=== PATIENT | female | born 1960 | race African-American/Black ===

== ENCOUNTER 2016-12-21 03:33 | Emergency (ER) | payer OTHER ==
[2016-12-21 04:26] LABS: #Basophils 0.1 thou/uL (0.0-0.2); #Eosinphils 0.2 thou/uL (0.0-0.7); #Lymphocytes 2.3 thou/uL (1.20-3.40); #Monocytes 0.5 thou/uL (0.11-0.59); #Neutrophils 3.2 thou/uL (1.40-6.50); %Basophils 1.4 % (0.0-1.0); %Eosinophils 2.5 % (0.0-10.0); %Lymphocytes 36.8 % (21.0-51.0); %Monocytes 7.9 % (0.0-10.0); Hematocrit 39.3 % (36.0-47.0); Mean Platelet Volume 7.3 fL (7.4-10.4); Red Blood Cell (RBC) Count 4.04 mill/uL (4.20-5.40); White Blood Cell (WBC) Count 6.3 thou/uL (4.8-10.8)
[2016-12-21 04:49] LABS: ALT (SGPT) 9 U/L (8-55); AST (SGOT) 13 U/L (5-34); Alkaline Phosphatase 132 U/L (40-150); Anion Gap 15 mmol/L (10-20); BUN (Urea Nitrogen) 12 mg/dL (9.8-20.1); Bilirubin, Total 0.2 mg/dL (0.2-1.2); CK (CPK) 96 U/L (29-168); Calc. Creatinine Clearance 0 mL/min (70-130); Calcium 8.5 mg/dL (7.8-10.44); Carbon Dioxide 21 mmol/L (22-29); Chloride 106 mmol/L (98-107); Estimated GFR-MDRD Greater than 90; Globulin 3.2 g/dL (2.4-3.5); Protein, Total 6.5 g/dL (6.0-8.3)
[2016-12-21 04:53] LABS: Troponin I Less than 0.010 ng/mL (< 0.028)
[2016-12-21] MEDS ORDERED: Ketorolac Tromethamine 30 MG/ML VIAL ONE (04:53)
[2016-12-21] MEDS ORDERED: Ibuprofen 200 MG TAB ONE (04:58)
--- NOTE | 2016-12-21 07:51 | RAD ---
SINGLE VIEW OF CHEST: Date: 12/21/16 COMPARISON: 10/28/16. HISTORY: Shortness of breath and chest pain that began 1 hour prior to arrival. FINDINGS/IMPRESSION: Single view of the chest shows a normal sized cardiomediastinal silhouette. There is no evidence of consolidation, mass, or pleural effusion. The bones are unremarkable. Shrapnel is seen in the left a xillary region. IMPRESSION: No evidence of acute cardiopulmonary disease. POS: [facility]
--- NOTE | 2017-02-03 16:47 | EKG ---
Test Reason : CHEST PAIN Blood Pressure : / mmHG Vent. Rate : 075 BPM Atrial Rate : 075 BPM P-R Int : 134 ms QRS Dur : 068 ms QT Int : 386 ms P-R-T Axes : 083 063 061 degrees QTc Int : 431 ms Normal sinus rhythm with sinus arrhythmia Normal ECG Confirmed by AMENA BROCK, RENÉE ([id number]), photograph editor GIORGI GLASS ([id number]) on 02/03/2017 4:46:43 PM Referred By: GUNNER BECKWITH Confirmed By:RENÉE BECKWITH MD
== END 2016-12-21 06:13 | disposition home or self-care (01) ==
LOC: ERS 03:33
DX: M94.0 Chondrocostal junction syndrome [Tietze] (principal); K21.9 Gastro-esophageal reflux disease without esophagitis; I10 Essential (primary) hypertension; F20.9 Schizophrenia, unspecified; F32.9 Major depressive disorder, single episode, unspecified; F17.210 Nicotine dependence, cigarettes, uncomplicated; Z79.899 Other long term (current) drug therapy
CPT/HCPCS: 71010; 80053; 82553; 84484; 85025; 93005; J1885

== ENCOUNTER 2016-12-30 15:28 | Emergency (ER) | payer OTHER ==
[~2016-12-30 15:28] MED LIST: ISOVUE-370 76%-LOCM 1 ML ONE
[2016-12-30 16:44] LABS: #Basophils 0.1 thou/uL (0.0-0.2); #Eosinphils 0.1 thou/uL (0.0-0.7); #Lymphocytes 2.1 thou/uL (1.20-3.40); #Monocytes 0.4 thou/uL (0.11-0.59); #Neutrophils 2.9 thou/uL (1.40-6.50); %Basophils 1.3 % (0.0-1.0); %Eosinophils 1.7 % (0.0-10.0); %Lymphocytes 37.2 % (21.0-51.0); %Monocytes 7.1 % (0.0-10.0); Hematocrit 43.1 % (36.0-47.0); Mean Platelet Volume 6.6 fL (7.4-10.4); Red Blood Cell (RBC) Count 4.48 mill/uL (4.20-5.40); White Blood Cell (WBC) Count 5.5 thou/uL (4.8-10.8)
[2016-12-30] MEDS ORDERED: Metoclopramide HCl 10 MG/2 ML VIAL ONE (16:56)
[2016-12-30] MEDS ORDERED: Morphine 4 MG/ML VIAL ONE (16:56)
[2016-12-30 16:58] LABS: Bilirubin Negative (Negative); Blood, Urine Negative (Negative); Glucose, Urine (Dipstick) Negative (Negative); Ketone, Urine Negative (Negative); Nitrite Negative (Negative); Protein, Urine (Dipstick) Negative (Neg-Trace); Urobilinogen 0.2 mg/dL (0.2-1.0)
[2016-12-30 16:59] LABS: ALT (SGPT) 9 U/L (8-55); AST (SGOT) 17 U/L (5-34); Alkaline Phosphatase 164 U/L (40-150); Anion Gap 13 mmol/L (10-20); BUN (Urea Nitrogen) 11 mg/dL (9.8-20.1); Bilirubin, Total Less than 0.2 mg/dL (0.2-1.2); CK (CPK) 99 U/L (29-168); Calc. Creatinine Clearance 0 mL/min (70-130); Calcium 9.3 mg/dL (7.8-10.44); Carbon Dioxide 28 mmol/L (22-29); Chloride 104 mmol/L (98-107); Estimated GFR-MDRD Greater than 90; Globulin 3.7 g/dL (2.4-3.5); Lipase 16 U/L (8-78); Protein, Total 7.9 g/dL (6.0-8.3)
[2016-12-30 17:01] LABS: Troponin I Less than 0.010 ng/mL (< 0.028)
--- NOTE | 2016-12-30 17:32 | CT ---
CT ABDOMEN AND PELVIS WITH CONTRAST 12/30/16 HISTORY: Nausea and vomiting. COMPARISON: None. FINDINGS: There is some atelectatic changes versus scarring in the lower lobes with some traction bronchiectasi s. Large sliding hiatal hernia. Cholecystectomy changes with mild reservoir effect at the extrahepati c biliary system. Appendix is visualized and is normal. No radiopaque foreign object along the left sacrospinal ligament. Moderate degenerative disease of the pubic symphysis with some mild offset, likely chronic in nature with the right pubic body just caudad to the left pubic body. No dilated loops of large or small bowel. No adenopathy. There is contrast within the renal collectin g systems and the urinary bladder. Prior hysterectomy. IMPRESSION: 1. No acute intra-abdominal abnormality. 2. Moderate sized sliding hiatal hernia. 3. Scarring in the lung bases with traction bronchiectasis likely post infectious in nature. POS: [facility]
== END 2016-12-30 20:23 | disposition home or self-care (01) ==
LOC: ERS 15:28
DX: R11.2 Nausea with vomiting, unspecified (principal); R10.10 Upper abdominal pain, unspecified; M19.90 Unspecified osteoarthritis, unspecified site; K21.9 Gastro-esophageal reflux disease without esophagitis; I10 Essential (primary) hypertension; I48.91 Unspecified atrial fibrillation; G43.909 Migraine, unspecified, not intractable, without status migrainosus; F32.9 Major depressive disorder, single episode, unspecified; F20.9 Schizophrenia, unspecified; F17.210 Nicotine dependence, cigarettes, uncomplicated; Z79.899 Other long term (current) drug therapy
CPT/HCPCS: 74177; 80053; 81003; 82553; 83690; 84484; 85025; 93005; 96360; 96361; 96374; 96375; 99406; J2270; J2765

== ENCOUNTER 2017-02-19 03:53 | Emergency (ER) | payer OTHER ==
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
== END 2017-02-19 06:05 | disposition home or self-care (01) ==
LOC: ERS 03:53
DX: J18.9 Pneumonia, unspecified organism (principal); M19.90 Unspecified osteoarthritis, unspecified site; K21.9 Gastro-esophageal reflux disease without esophagitis; I10 Essential (primary) hypertension; I48.91 Unspecified atrial fibrillation; G43.909 Migraine, unspecified, not intractable, without status migrainosus; F20.9 Schizophrenia, unspecified; F32.9 Major depressive disorder, single episode, unspecified; F17.210 Nicotine dependence, cigarettes, uncomplicated; Z71.6 Tobacco abuse counseling; Z79.899 Other long term (current) drug therapy
CPT/HCPCS: 71046; 93005; 99406

== ENCOUNTER 2017-03-28 06:21 | Emergency (ER) | payer OTHER | END 2017-03-28 07:38 | disposition home or self-care (01) | LOC: ERS 06:21 | DX: J11.1 Influenza due to unidentified influenza virus with other respiratory manifestations (principal); M19.90 Unspecified osteoarthritis, unspecified site; K21.9 Gastro-esophageal reflux disease without esophagitis; I48.91 Unspecified atrial fibrillation; F41.9 Anxiety disorder, unspecified; F25.9 Schizoaffective disorder, unspecified; F32.9 Major depressive disorder, single episode, unspecified; F17.210 Nicotine dependence, cigarettes, uncomplicated; I10 Essential (primary) hypertension; G43.909 Migraine, unspecified, not intractable, without status migrainosus | CPT/HCPCS: 99283 ==

== ENCOUNTER 2017-04-13 04:01 | Inpatient (IN) | payer OTHER ==
[2017-04-13 05:46] LABS: ALT (SGPT) 13 U/L (8-55); AST (SGOT) 19 U/L (5-34); Acetaminophen Less than 6.0 mcg/mL (10.0-30.0); Albumin 4.1 g/dL (3.5-5.0); Alcohol Less than 10 mg/dL (Less than 10); Alkaline Phosphatase 126 U/L (40-150); Anion Gap 17 mmol/L (10-20); BUN (Urea Nitrogen) 21 mg/dL (9.8-20.1); Bilirubin, Total 0.6 mg/dL (0.2-1.2); Calc. Creatinine Clearance 0 mL/min (70-130); Calcium 9.3 mg/dL (7.8-10.44); Carbon Dioxide 23 mmol/L (22-29); Chloride 106 mmol/L (98-107); Estimated GFR-MDRD 80; Globulin 3.5 g/dL (2.4-3.5); Glucose 87 mg/dL (70-105); Potassium 3.9 mmol/L (3.5-5.1); Protein, Total 7.6 g/dL (6.0-8.3); Salicylate Less than 8.0 mg/dL (15.0-30.0); Sodium 142 mmol/L (136-145)
[2017-04-13] MEDS ORDERED: Acetaminophen 500 MG TAB ONE (05:52)
[2017-04-13 05:53] LABS: Band 22 % (5-11); Hemoglobin 14.1 g/dL (12.0-16.0); Lymphocytes 8 % (21-51); MDiff Complete? YES; Mean Corpuscular HGB CONC 33.7 g/dL (32.0-36.0); Mean Corpuscular Hemoglobin 31.3 pg (27.0-31.0); Mean Corpuscular Volume 93.1 fl (81.0-99.0); Mean Platelet Volume 7.6 fL (7.4-10.4); Neutrophil 70 % (42-75); Platelet Count 280 thou/uL (130-400); RBC Distribution Width 11.4 % (11.5-14.5); Red Blood Cell (RBC) Count 4.51 mill/uL (4.20-5.40); White Blood Cell (WBC) Count 15.8 thou/uL (4.8-10.8)
[2017-04-13 06:30] LABS: Bilirubin Negative (Negative); Blood, Urine Negative (Negative); Clarity CLEAR (Clear); Glucose, Urine (Dipstick) Negative (Negative); Leukocyte Negative (Negative); Nitrite Negative (Negative); Protein, Urine (Dipstick) 30 mg/dL (Neg-Trace); Specific Gravity, Urine 1.026 (1.002-1.036); Urobilinogen 0.2 mg/dL (0.2-1.0)
[2017-04-13 06:33] LABS: Bacteria/HPF None Seen HPF (None Seen); Pathc Cast-AUWi Flag 1.76 (0-2.49); RBC/HPF 0-3 HPF (0-3); Squamous Epithelial 0-3 HPF (0-3)
[2017-04-13 06:41] LABS: Medtox Reader # READER 1
[2017-04-13 06:42] LABS: Amphetamine Not Detected (NotDetected); Barbiturates Screen Detected (NotDetected); Benzodiazepine Screen Not Detected (NotDetected); Cocaine Metabolite Screen Detected (NotDetected); Medtox Control Line Valid? VALID (VALID); Methadone Not Detected (NotDetected); Methamphetamine Not Detected (NotDetected); Opiate Screen Not Detected (NotDetected); Oxycodone Screen Not Detected (NotDetected); Phencyclidine (PCP) Not Detected (NotDetected); THC/Cannabinoid Screen Not Detected (NotDetected); Tricyclic Screen Not Detected (NotDetected)
[2017-04-13] MEDS ORDERED: Azithromycin 500 MG VIAL ONE (06:58)
[2017-04-13 07:03] LABS: Hyaline Casts/LPF 0-3 HYALINE CAST LPF (0-3 Hyaline); Renal Epithelial None Seen HPF (0-3); WBC/HPF 0-3 HPF (0-3)
[2017-04-13 07:45] LABS: CKMB 1.9 ng/mL (0-6.6); Troponin I 0.013 ng/mL (< 0.028)
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
[2017-04-13] MEDS ORDERED: Ondansetron HCl/PF 4 MG/2 ML Vial IVP PRN ×2 (09:02→21:21)
[2017-04-13] MEDS ORDERED: Ondansetron ODT 4 MG TAB PO PRN ×2 (09:02→21:21)
[2017-04-13] MEDS ORDERED: Acetaminophen 325 MG TAB PO PRN (09:02)
[2017-04-13 09:47] VITALS: BMI 27.0
[2017-04-13] MEDS ORDERED: Ondansetron HCl/PF 4 MG/2 ML Vial SLOW IVP PRN (19:33)
[2017-04-13] MEDS: traMADol HCl 50 MG TAB PO PRN (19:48)
[2017-04-13] MEDS: ALPRAZolam 1 MG TAB PO SCH (20:43)
[2017-04-13] MEDS: Pregabalin 50 MG CAP PO SCH (20:43)
[2017-04-13] MEDS: traZODone HCl 50 MG TAB PO SCH (20:43)
[2017-04-14 05:52] LABS: #Eosinphils 0.1 thou/uL (0.0-0.7); #Lymphocytes 2.1 thou/uL (1.20-3.40); #Monocytes 0.6 thou/uL (0.11-0.59); #Neutrophils 10.2 thou/uL (1.40-6.50); %Eosinophils 0.7 % (0.0-10.0); %Monocytes 4.8 % (0.0-10.0); %Neutrophils 78.5 % (42.0-75.0); Hemoglobin 12.6 g/dL (12.0-16.0); Mean Corpuscular HGB CONC 32.3 g/dL (32.0-36.0); Mean Corpuscular Hemoglobin 30.8 pg (27.0-31.0); Mean Corpuscular Volume 95.4 fl (81.0-99.0); Mean Platelet Volume 7.5 fL (7.4-10.4); Platelet Count 244 thou/uL (130-400); RBC Distribution Width 11.4 % (11.5-14.5); Red Blood Cell (RBC) Count 4.09 mill/uL (4.20-5.40)
[2017-04-14 06:19] LABS: Anion Gap 13 mmol/L (10-20); BUN (Urea Nitrogen) 13 mg/dL (9.8-20.1); Calc. Creatinine Clearance 104 mL/min (70-130); Calcium 8.8 mg/dL (7.8-10.44); Carbon Dioxide 23 mmol/L (22-29); Chloride 109 mmol/L (98-107); Estimated GFR-MDRD Greater than 90; Glucose 88 mg/dL (70-105); Sodium 141 mmol/L (136-145)
--- NOTE | 2017-04-14 06:55 | HP ---
CHIEF COMPLAINT: Headache and cocaine overdose. HISTORY OF PRESENT ILLNESS: History is that of 57-year-old female patient who took cocaine and chantal garcia overdosed on it, presented to the ER complaining of left-sided pain and frontal headache, which s tarted after smoking crack. The patient incidentally was noted on clinical evaluation with chest x-r ay of what appears to be right lower lobe pneumonia. The patient does have sick contact and claimed to also be coughing. As a result of this, the patient is now being admitted to be treated for the pn eumonitis. PAST MEDICAL HISTORY: Significant for seizure disorder, reflux disease, hypertension, atrial fibrill ation, migraine headache. MEDICATIONS: Reviewed and as documented on [email or web address]. ALLERGIES: PENICILLINS and KETOROLAC. FAMILY HISTORY: Not significantly related to presenting illness. SOCIAL HISTORY: The patient used to smoke cigarettes. In addition, the patient is now using crack a fter claiming to be clean for some time due to depression . PHYSICAL EXAMINATION: GENERAL: The patient was found not to be in any respiratory distress, but complaining of headache no concetta with the following vital signs. VITAL SIGNS: Afebrile with temperature 97.9, pulse 93, respiratory rate of 20, O2 sat of 100%, blood pressure 114/75. HEENT: Unremarkable. Moist oral mucosa. NECK: Supple. No conjunctival injection or icterus. CARDIOVASCULAR SYSTEM: First and second heart sounds were heard. RESPIRATORY SYSTEM: Clear to auscultation. DIGESTIVE SYSTEM: Revealed a benign abdomen with positive bowel sounds. EXTREMITIES: No peripheral edema. SKIN: No new gross rash. LYMPHATICS: No peripheral lymphadenopathy. IMPRESSION: 1. Cocaine abuse. 2. Right lower lobe pneumonitis. 3. History of depression, but no suicidal ideation. 4. Cephalgia. PLAN: 1. The patient to be on antibiotics to address pneumonitis. 2. Pain management. 3. Counseling on the need to discontinue this lifestyle of illicit drug use as well as tobacco use. 4. Further management to be dependent on the clinical course. CODE STATUS: Full.
[2017-04-14] MEDS: Enoxaparin Sodium 40 MG/0.4 ML SYRINGE SC SCH (07:42)
[2017-04-14] MEDS: Pregabalin 50 MG CAP PO SCH ×3 (07:43→20:12)
[2017-04-14] MEDS: ALPRAZolam 1 MG TAB PO SCH ×2 (07:44→20:12)
[2017-04-14] MEDS: Loratadine 10 MG TAB PO SCH (07:45)
--- NOTE | 2017-04-14 13:53 | PDOC.PN ---
- Subjective Encounter Start Date: 04/14/17 Encounter Start Time: 13:50 Subjective: seen and examined feeling better - Objective Resuscitation Status: Resuscitation Status FULL:Full Resuscitation Vital Signs & Weight: Vital Signs (12 hours) Temp Pulse Resp BP Pulse Ox 04/14/17 12:49 98.4 F 80 17 98/67 92 L 04/14/17 08:00 98.2 F 76 18 95 04/14/17 07:28 98.2 F 76 18 115/75 99 04/14/17 05:59 98 F 86 20 115/80 91 L Weight Admit Weight 167 lb 4.8 oz Weight 167 lb 4.8 oz I&O: 04/13/17 04/14/17 04/15/17 06:59 06:59 06:59 Intake Total 700 240 Balance 700 240 Result Diagrams: 04/14/17 04:40 04/14/17 04:40 Phys Exam - Physical Examination Constitutional: NAD HEENT: PERRLA, moist MMs, sclera anicteric, TM's clear Neck: no nodes, no JVD, supple, full ROM Respiratory: no wheezing, no rales, no rhonchi, clear to auscultation bilateral Cardiovascular: RRR, no significant murmur, no rub Gastrointestinal: soft, non-tender, no distention, positive bowel sounds Musculoskeletal: no edema, pulses present Dx/Plan (1) Pneumonia Code(s): J18.9 - PNEUMONIA, UNSPECIFIED ORGANISM Status: Acute (2) Cocaine abuse Code(s): F14.10 - COCAINE ABUSE, UNCOMPLICATED Status: Acute (3) GERD (gastroesophageal reflux disease) Code(s): K21.9 - GASTRO-ESOPHAGEAL REFLUX DISEASE WITHOUT ESOPHAGITIS Status: Chronic (4) Hypertension, benign Code(s): I10 - ESSENTIAL (PRIMARY) HYPERTENSION Status: Chronic - Plan continue antibiotics, social group worker, respiratory therapy counselling -: dispo planning * .
[2017-04-14] MEDS: traZODone HCl 50 MG TAB PO SCH (20:11)
[2017-04-14] MEDS ORDERED: guaiFENesin ER 600 MG TAB PO SCH (21:45)
[2017-04-15] MEDS: ALPRAZolam 1 MG TAB PO SCH ×2 (07:47→20:11)
[2017-04-15] MEDS: Loratadine 10 MG TAB PO SCH (07:48)
[2017-04-15] MEDS: Pregabalin 50 MG CAP PO SCH ×3 (07:48→20:12)
[2017-04-15] MEDS: Enoxaparin Sodium 40 MG/0.4 ML SYRINGE SC SCH (07:49)
[2017-04-15] MEDS: guaiFENesin ER 600 MG TAB PO SCH ×2 (07:49→20:11)
--- NOTE | 2017-04-15 10:21 | PDOC.PN ---
- Subjective Encounter Start Date: 04/15/17 Encounter Start Time: 13:03 CC: Cough sub: Pt c/o some cough - Objective Resuscitation Status: Resuscitation Status FULL:Full Resuscitation Vital Signs & Weight: Vital Signs (12 hours) Temp Pulse Resp BP Pulse Ox 04/15/17 08:00 98.5 F 75 18 95 04/15/17 07:05 98.5 F 75 18 131/81 100 Weight Admit Weight 167 lb 4.8 oz Weight 167 lb 4.8 oz I&O: 04/14/17 04/15/17 04/16/17 06:59 06:59 06:59 Intake Total 700 1530 360 Balance 700 1530 360 Result Diagrams: 04/14/17 04:40 04/14/17 04:40 Phys Exam - Physical Examination Constitutional: NAD HEENT: moist MMs Neck: no JVD Respiratory: no wheezing, no rales, no rhonchi occasional crackles Cardiovascular: RRR, no significant murmur, no rub Gastrointestinal: soft, non-tender, positive bowel sounds Musculoskeletal: no edema Neurological: non-focal Dx/Plan - Plan 1. Pneumonia 2. Cocaine abuse 3. H/O Depression 4. Leukocytosis plan: improving. Pulse ox 01-93% on RA and decreases to 89% on ambulation will chekc cxr to evaluate infiltrate Cultures no growth so far repeat labs in am Possible dc in next 2-8 hrs if oxygens sats improves
--- NOTE | 2017-04-15 13:48 | RAD ---
RADIOGRAPH CHEST 1 VIEW: Date: 04/15/17. Time: 12:57 p.m. HISTORY: A 57-year-old female with pneumonia, followup. COMPARISON: 04/13/17. FINDINGS: The previously demonstrated mild infiltrate at the right lower lung zone has become more compact, and more streaky. The rest of the lungs remain grossly clear. Cardiac size is at the upper limits of n ormal. No pulmonary edema. No effacement of lateral costophrenic angles. No pneumothorax. Again n oted is the metallic shrapnel overlying the left upper lateral chest. IMPRESSION: Interval improvement in right lower lobe pneumonia. ALDAIR [] POS: [facility]
[2017-04-15] MEDS: Diabetic Tussin 200 MG/10 ML UDCUP PO PRN ×2 (15:15→20:15)
[2017-04-15] MEDS: Acetaminophen 325 MG TAB PO PRN (16:51)
[2017-04-15] MEDS ORDERED: diphenhydrAMINE 25 MG CAP PO SCH (20:00)
[2017-04-15] MEDS: traZODone HCl 50 MG TAB PO SCH (20:11)
[2017-04-16] MEDS ORDERED: traZODone HCl 50 MG TAB PO SCH (00:30)
[2017-04-16] MEDS: traMADol HCl 50 MG TAB PO PRN (05:22)
[2017-04-16] MEDS: Diabetic Tussin 200 MG/10 ML UDCUP PO PRN ×2 (05:22→12:56)
[2017-04-16] MEDS: Acetaminophen 325 MG TAB PO PRN (07:58)
[2017-04-16] MEDS: Pregabalin 50 MG CAP PO SCH ×3 (07:59→21:25)
[2017-04-16] MEDS: guaiFENesin ER 600 MG TAB PO SCH ×2 (08:00→21:24)
[2017-04-16] MEDS: Loratadine 10 MG TAB PO SCH (08:00)
[2017-04-16] MEDS: ALPRAZolam 1 MG TAB PO SCH (08:00)
[2017-04-16] MEDS: Enoxaparin Sodium 40 MG/0.4 ML SYRINGE SC SCH (08:04)
[2017-04-16] MEDS ORDERED: ALPRAZolam 1 MG TAB PO PRN (20:34)
--- NOTE | 2017-04-16 20:37 | PDOC.PN ---
- Subjective Encounter Start Date: 04/16/17 Encounter Start Time: 15:00 Patient seen and examined. Feels gen weak. Productive cough. No overnight events - Objective Resuscitation Status: Resuscitation Status FULL:Full Resuscitation MAR Reviewed: Yes Vital Signs & Weight: Vital Signs (12 hours) Pulse Ox 04/16/17 14:49 91 L Weight Admit Weight 167 lb 4.8 oz Weight 167 lb 4.8 oz I&O: 04/15/17 04/16/17 04/17/17 06:59 06:59 06:59 Intake Total 1530 1440 1570 Balance 1530 1440 1570 Result Diagrams: 04/14/17 04:40 04/14/17 04:40 Phys Exam - Physical Examination Ill appearing HEENT: sclera anicteric Neck: no JVD Respiratory: no wheezing Rt basilar rales with scat rhonchi Cardiovascular: RRR, no rub Gastrointestinal: soft, non-tender, positive bowel sounds Musculoskeletal: no edema Neurological: moves all 4 limbs Dx/Plan - Plan DVT proph w/SCDs IMPRESSION: 1. Sepsis due to CAP - suspected Pneumococcal 2. Cocaine abuse - Counselled. 3. HTN 4. GERD 5. Seizure disorder PLAN: * Cont IV Atbx for another day * Cont current meds as below * O2 sat in low 90s Review of Systems - Review of Systems Cardiovascular: negative: chest pain, palpitations, orthopnea, paroxysmal nocturnal dyspnea, edema, light headedness Gastrointestinal: negative: Nausea, Vomiting, Abdominal Pain, Diarrhea, Constipation, Melena, Hematochezia - Medications/Allergies Allergies/Adverse Reactions: Allergies Allergy/AdvReac Type Severity Reaction Status Date / Time ketorolac Allergy Intermediate Verified 09/08/16 08:59 Penicillins Allergy Intermediate Verified 09/08/16 08:59 Medications: Current Medications Acetaminophen (Tylenol) 650 mg PO Q4H PRN PRN Reason: Headache/Fever or Pain Last Admin: 04/16/17 07:58 Dose: 650 mg Alprazolam (Xanax) 1 mg PO BIDPRN PRN PRN Reason: Anxiety Guaifenesin (Mucinex) 600 mg PO Q12HR GABI Last Admin: 04/16/17 08:00 Dose: 600 mg Guaifenesin (Robitussin Sf) 100 mg PO Q6H PRN PRN Reason: Cough Last Admin: 04/16/17 12:56 Dose: 100 mg Levofloxacin 750 mg/ Device 150 mls @ 100 mls/hr IVPB 0800 [facility] Last Admin: 04/16/17 08:07 Dose: 150 mls Loratadine (Claritin) 10 mg PO DAILY [facility] Last Admin: 04/16/17 08:00 Dose: 10 mg Metoprolol Succinate (Toprol Xl) 50 mg PO DAILY [facility] Last Admin: 04/16/17 08:00 Dose: 50 mg Ondansetron HCl (Zofran) 4 mg SLOW IVP Q6H PRN PRN Reason: Nausea/Vomiting Last Admin: 04/13/17 19:48 Dose: 4 mg Ondansetron HCl (Zofran Odt) 4 mg PO Q6H PRN PRN Reason: Nausea/Vomiting Ondansetron HCl (Zofran) 4 mg IVP Q6H PRN PRN Reason: Nausea/Vomiting Pantoprazole Sodium (Protonix) 40 mg PO DAILY [facility] Last Admin: 04/16/17 08:00 Dose: 40 mg Phenytoin Sodium (Dilantin Er) 300 mg PO DAILY [facility] Last Admin: 04/16/17 08:00 Dose: 300 mg Pregabalin (Lyrica) 100 mg PO TID [facility] Last Admin: 04/16/17 15:06 Dose: 100 mg Sodium Chloride (Flush - Normal Saline) 10 ml IVF Q12HR [facility] Last Admin: 04/16/17 08:04 Dose: 10 ml Sodium Chloride (Flush - Normal Saline) 10 ml IVF PRN PRN PRN Reason: Saline Flush Trazodone HCl (Desyrel) 100 mg PO HS [facility] Last Admin: 04/15/17 20:11 Dose: 100 mg
[2017-04-16] MEDS: traZODone HCl 50 MG TAB PO SCH (21:25)
--- NOTE | 2017-04-17 07:48 | PDOC.PN ---
- Subjective Encounter Start Date: 04/17/17 Encounter Start Time: 15:00 Patient seen and examined. No new complaints. No overnight events - Objective Resuscitation Status: Resuscitation Status FULL:Full Resuscitation MAR Reviewed: Yes Vital Signs & Weight: Vital Signs (12 hours) Temp Pulse Resp BP Pulse Ox 04/16/17 20:00 97.4 F L 70 18 139/88 95 Weight Admit Weight 167 lb 4.8 oz Weight 167 lb 4.8 oz I&O: 04/16/17 04/17/17 04/18/17 06:59 06:59 06:59 Intake Total 1440 2045 Balance 1440 2045 Result Diagrams: 04/14/17 04:40 04/14/17 04:40 Dx/Plan - Plan * .
[2017-04-17] MEDS: Pregabalin 50 MG CAP PO SCH (08:07)
[2017-04-17] MEDS: Loratadine 10 MG TAB PO SCH (08:10)
[2017-04-17] MEDS: guaiFENesin ER 600 MG TAB PO SCH (08:12)
[2017-04-17] MEDS: Diabetic Tussin 200 MG/10 ML UDCUP PO PRN (08:26)
[2017-04-17 09:42] VITALS: BP 103/71; TEMP 98.1
--- NOTE | 2017-04-17 09:51 | DIS ---
DATE OF ADMISSION: 04/13/2017 DATE OF DISCHARGE: 04/17/2017 DISCHARGE DISPOSITION: Home. FOLLOWUP: Follow up with Dr. Golden in 1 week. ALLERGIES: The patient is allergic to PENICILLIN and TORADOL. DISCHARGE MEDICATIONS: Levaquin 750 mg daily #4. Other home medications were resumed. The patient was advised to quit cocaine abuse. SIGNIFICANT LABORATORY: 1. Urine drug screen positive for cocaine and barbiturates. 2. WBC on admission 15.8 with 22% bandemia. The next day WBC went down to 13 without any bandemia. 3. Sodium 141, creatinine 4.0. 4. Blood cultures negative. 5. Influenza testing was negative. 6. Chest x-ray showed right-sided pneumonia. CT scan of the brain was negative for acute findings. BRIEF HOSPITAL COURSE: The patient is a 57-year-old female who presented to the emergency room with a headache and left-sided chest pain after smoking crack cocaine. Please refer to the history and ph ysical dated 04/13/2017 for further details. The patient was admitted to the hospital with a diagnosis of pneumonia with cocaine abuse. Her tropo nins were negative. Chest discomfort has resolved. Her WBC count improved after antibiotics. She w as placed on Levaquin. She will continue Levaquin as outpatient. Lifestyle modification including c ocaine cessation was emphasized. Plan of care was discussed with the patient in detail. She stated understanding. IMPRESSION: 1. Sepsis secondary to pneumonia. Her temperature in the emergency room was 102.7 with pulse rate o f 114 and WBC of 15.8 with 22% neutrophils. 2. Cocaine abuse. 3. Gastroesophageal reflux disease. 4. Seizure disorder. 5. Hypertension. 6. History of migraines. 7. Penicillin allergy. 8. Paroxysmal atrial fibrillation. 9. Schizophrenia. 10. Degenerative joint disease. 11. Anxiety and depression. 12. Ongoing tobacco use. Plan of care was discussed with the patient in detail. She stated understanding.
[2017-04-20] MEDS ORDERED: Ergocalciferol 1.25 MG(50,000 UNITS) CAP PO SCH (09:00)
== END 2017-04-17 11:20 | disposition home or self-care (01) | DRG 871 ==
LOC: ERS 04:01 → T4-B 06:38
PROVIDERS: ADMIT Family Medicine; ATTEND Family Medicine
DX: A41.9 Sepsis, unspecified organism (principal); J13 Pneumonia due to Streptococcus pneumoniae; F14.10 Cocaine abuse, uncomplicated; G40.909 Epilepsy, unspecified, not intractable, without status epilepticus; I48.0 Paroxysmal atrial fibrillation; F20.9 Schizophrenia, unspecified; F32.9 Major depressive disorder, single episode, unspecified; R51 Headache; K21.9 Gastro-esophageal reflux disease without esophagitis; I10 Essential (primary) hypertension; M19.90 Unspecified osteoarthritis, unspecified site; F41.9 Anxiety disorder, unspecified; F17.210 Nicotine dependence, cigarettes, uncomplicated
CPT/HCPCS: 36415; 70450; 71045; 80048; 80053; 80306; 80307; 81003; 81015; 82553; 83605; 84484; 85025; 87040; 87086; 87804; 93005; 96361; 96365; 96374; A4216; J0456; J0696; J1650; J1956; J2405; Q0162

== ENCOUNTER 2017-04-25 02:07 | Emergency (ER) | payer OTHER ==
[2017-04-25] MEDS ORDERED: Ondansetron HCl/PF 4 MG/2 ML Vial ONE ×2 (02:46)
[2017-04-25 02:50] LABS: #Basophils 0.1 thou/uL (0.0-0.2); #Eosinphils 0.2 thou/uL (0.0-0.7); #Monocytes 0.6 thou/uL (0.11-0.59); #Neutrophils 5.2 thou/uL (1.40-6.50); %Basophils 1.3 % (0.0-1.0); %Eosinophils 2.3 % (0.0-10.0); %Lymphocytes 32.9 % (21.0-51.0); %Monocytes 6.5 % (0.0-10.0); Hemoglobin 13.1 g/dL (12.0-16.0); Mean Corpuscular HGB CONC 32.8 g/dL (32.0-36.0); Mean Corpuscular Hemoglobin 31.4 pg (27.0-31.0); Mean Corpuscular Volume 95.8 fl (81.0-99.0); Mean Platelet Volume 6.7 fL (7.4-10.4); Platelet Count 440 thou/uL (130-400); RBC Distribution Width 11.3 % (11.5-14.5); Red Blood Cell (RBC) Count 4.17 mill/uL (4.20-5.40); White Blood Cell (WBC) Count 9.2 thou/uL (4.8-10.8)
[2017-04-25 03:00] LABS: Medtox Reader # READER 4
[2017-04-25 03:02] LABS: Amphetamine Not Detected (NotDetected); Barbiturates Screen Detected (NotDetected); Benzodiazepine Screen Not Detected (NotDetected); Cocaine Metabolite Screen Not Detected (NotDetected); Medtox Control Line Valid? VALID (VALID); Methadone Not Detected (NotDetected); Methamphetamine Not Detected (NotDetected); Opiate Screen Not Detected (NotDetected); Oxycodone Screen Not Detected (NotDetected); Phencyclidine (PCP) Not Detected (NotDetected); THC/Cannabinoid Screen Not Detected (NotDetected); Tricyclic Screen Not Detected (NotDetected)
[2017-04-25 03:23] LABS: ALT (SGPT) 9 U/L (8-55); AST (SGOT) 18 U/L (5-34); Albumin 3.9 g/dL (3.5-5.0); Alkaline Phosphatase 97 U/L (40-150); Anion Gap 12 mmol/L (10-20); BUN (Urea Nitrogen) 10 mg/dL (9.8-20.1); Bilirubin, Total 0.2 mg/dL (0.2-1.2); Calc. Creatinine Clearance 0 mL/min (70-130); Calcium 9.2 mg/dL (7.8-10.44); Carbon Dioxide 27 mmol/L (22-29); Chloride 102 mmol/L (98-107); Estimated GFR-MDRD 90; Globulin 3.8 g/dL (2.4-3.5); Glucose 107 mg/dL (70-105); Potassium 4.1 mmol/L (3.5-5.1); Protein, Total 7.7 g/dL (6.0-8.3); Sodium 137 mmol/L (136-145)
[2017-04-25 03:39] LABS: Dilantin 4.3 ug/mL (10.0-20.0)
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
== END 2017-04-25 04:05 | disposition home or self-care (01) ==
LOC: ERS 02:07
DX: S09.90XA Unspecified injury of head, initial encounter (principal); K21.9 Gastro-esophageal reflux disease without esophagitis; I10 Essential (primary) hypertension; I48.91 Unspecified atrial fibrillation; G43.909 Migraine, unspecified, not intractable, without status migrainosus; F41.9 Anxiety disorder, unspecified; F31.9 Bipolar disorder, unspecified; F20.9 Schizophrenia, unspecified; W06.XXXA Fall from bed, initial encounter
CPT/HCPCS: 70450; 80053; 80185; 80306; 85025; 96374; J2405

== ENCOUNTER 2017-11-13 02:48 | Observation (INO) | payer OTHER ==
[2017-11-13 03:16] LABS: #Basophils 0.1 thou/uL (0.0-0.2); #Lymphocytes 1.5 thou/uL (1.20-3.40); #Monocytes 0.5 thou/uL (0.11-0.59); #Neutrophils 6.4 thou/uL (1.40-6.50); %Eosinophils 0.4 % (0.0-10.0); %Lymphocytes 17.7 % (21.0-51.0); %Monocytes 5.8 % (0.0-10.0); %Neutrophils 75.2 % (42.0-75.0); Hemoglobin 13.9 g/dL (12.0-16.0); Mean Corpuscular HGB CONC 33.5 g/dL (32.0-36.0); Mean Corpuscular Hemoglobin 31.2 pg (27.0-31.0); Mean Corpuscular Volume 93.2 fL (78.0-98.0); Mean Platelet Volume 6.8 fL (7.4-10.4); Platelet Count 419 thou/uL (130-400); RBC Distribution Width 11.5 % (11.5-14.5); Red Blood Cell (RBC) Count 4.44 mill/uL (4.20-5.40); White Blood Cell (WBC) Count 8.6 thou/uL (4.8-10.8)
[2017-11-13 03:39] LABS: Acetaminophen Less than 6.0 mcg/mL (10.0-30.0); Alcohol 12 mg/dL (Less than 10); Salicylate Less than 8.0 mg/dL (15.0-30.0)
[2017-11-13 03:40] LABS: ALT (SGPT) 16 U/L (8-55); AST (SGOT) 25 U/L (5-34); Albumin 4.4 g/dL (3.5-5.0); Alkaline Phosphatase 137 U/L (40-150); Anion Gap 17 mmol/L (10-20); BUN (Urea Nitrogen) 15 mg/dL (9.8-20.1); Bilirubin, Total 0.3 mg/dL (0.2-1.2); Calc. Creatinine Clearance 0 mL/min (70-130); Calcium 9.5 mg/dL (7.8-10.44); Carbon Dioxide 21 mmol/L (22-29); Chloride 106 mmol/L (98-107); Estimated GFR-MDRD 62; Globulin 3.9 g/dL (2.4-3.5); Glucose 81 mg/dL (70-105); Potassium 4.6 mmol/L (3.5-5.1); Protein, Total 8.3 g/dL (6.0-8.3); Sodium 139 mmol/L (136-145)
[2017-11-13] MEDS ORDERED: Acetaminophen 325 MG TAB ONE (03:41)
[2017-11-13] MEDS ORDERED: Aspirin 325 MG TAB ONE (03:41)
[2017-11-13] MEDS ORDERED: Nitroglycerin 0.4 MG TAB (25 Tab Bottle) ONE (03:41)
[2017-11-13 03:44] LABS: Troponin I Less than 0.010 ng/mL (< 0.028)
[2017-11-13 05:40] LABS: Medtox Reader # READER 1; Phencyclidine (PCP) Not Detected (NotDetected); THC/Cannabinoid Screen Not Detected (NotDetected)
[2017-11-13 05:41] LABS: Amphetamine Not Detected (NotDetected); Benzodiazepine Screen Not Detected (NotDetected); Cocaine Metabolite Screen Detected (NotDetected); Methamphetamine Not Detected (NotDetected); Opiate Screen Not Detected (NotDetected); Tricyclic Screen Not Detected (NotDetected)
[2017-11-13 05:42] LABS: Barbiturates Screen Detected (NotDetected); Medtox Control Line Valid? VALID (VALID); Methadone Not Detected (NotDetected); Oxycodone Screen Not Detected (NotDetected)
[2017-11-13] MEDS ORDERED: Ondansetron HCl/PF 4 MG/2 ML Vial IVP PRN (06:58)
[2017-11-13] MEDS ORDERED: Nitroglycerin 0.4 MG TAB (25 Tab Bottle) SL PRN (06:59)
[2017-11-13] MEDS ORDERED: Acetaminophen 325 MG TAB PO PRN (06:59)
[2017-11-13] MEDS ORDERED: Ondansetron ODT 4 MG TAB PO PRN (06:59)
[2017-11-13 07:16] VITALS: BMI 26.4
[2017-11-13 07:55] LABS: Troponin I Less than 0.010 ng/mL (< 0.028)
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
[2017-11-13 11:05] LABS: Troponin I Less than 0.010 ng/mL (< 0.028)
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
[2017-11-13 12:14] VITALS: BP 108/51; TEMP 98.3
== END 2017-11-13 15:49 | disposition home or self-care (01) ==
LOC: ERS 02:48 → 2SW 04:10
PROVIDERS: ADMIT Hospitalist; ATTEND Hospitalist
DX: R07.9 Chest pain, unspecified (principal); F14.10 Cocaine abuse, uncomplicated; F17.210 Nicotine dependence, cigarettes, uncomplicated; F25.9 Schizoaffective disorder, unspecified; G40.909 Epilepsy, unspecified, not intractable, without status epilepticus; K21.9 Gastro-esophageal reflux disease without esophagitis; I10 Essential (primary) hypertension; M06.9 Rheumatoid arthritis, unspecified; G43.909 Migraine, unspecified, not intractable, without status migrainosus; Z79.899 Other long term (current) drug therapy; Z88.0 Allergy status to penicillin; Z88.8 Allergy status to other drugs, medicaments and biological substances
CPT/HCPCS: 36415; 71045; 80053; 80306; 80307; 84484; 85025; 93005; 99406; G0378

== ENCOUNTER 2017-11-26 06:48 | Emergency (ER) | payer OTHER ==
[2017-11-26 07:18] LABS: #Basophils 0.1 thou/uL (0.0-0.2); #Eosinphils 0.1 thou/uL (0.0-0.7); #Lymphocytes 2.1 thou/uL (1.20-3.40); #Monocytes 0.5 thou/uL (0.11-0.59); #Neutrophils 4.3 thou/uL (1.40-6.50); %Basophils 1.1 % (0.0-1.0); %Eosinophils 1.5 % (0.0-10.0); %Lymphocytes 29.2 % (21.0-51.0); %Neutrophils 61.2 % (42.0-75.0); Hemoglobin 13.1 g/dL (12.0-16.0); Mean Corpuscular Hemoglobin 30.1 pg (27.0-31.0); Mean Corpuscular Volume 94.2 fL (78.0-98.0); Mean Platelet Volume 6.8 fL (7.4-10.4); Platelet Count 340 thou/uL (130-400); RBC Distribution Width 11.8 % (11.5-14.5); Red Blood Cell (RBC) Count 4.34 mill/uL (4.20-5.40); White Blood Cell (WBC) Count 7.1 thou/uL (4.8-10.8)
[2017-11-26 07:47] LABS: ALT (SGPT) 35 U/L (8-55); AST (SGOT) 34 U/L (5-34); Albumin 3.7 g/dL (3.5-5.0); Alkaline Phosphatase 129 U/L (40-150); Anion Gap 10 mmol/L (10-20); BUN (Urea Nitrogen) 15 mg/dL (9.8-20.1); Bilirubin, Total 0.6 mg/dL (0.2-1.2); Calc. Creatinine Clearance 0 mL/min (70-130); Calcium 8.6 mg/dL (7.8-10.44); Carbon Dioxide 25 mmol/L (22-29); Chloride 108 mmol/L (98-107); Estimated GFR-MDRD Greater than 90; Globulin 3.4 g/dL (2.4-3.5); Glucose 100 mg/dL (70-105); Lipase 14 U/L (8-78); Potassium 4.3 mmol/L (3.5-5.1); Protein, Total 7.1 g/dL (6.0-8.3); Sodium 139 mmol/L (136-145)
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
[2017-11-26 09:50] LABS: Bilirubin Negative (Negative); Blood, Urine Negative (Negative); Clarity CLEAR (Clear); Glucose, Urine (Dipstick) Negative (Negative); Leukocyte Negative (Negative); Nitrite Negative (Negative); Protein, Urine (Dipstick) Negative (Neg-Trace); Urobilinogen 0.2 mg/dL (0.2-1.0)
[2017-11-26 09:56] LABS: Specific Gravity, Urine 1.051 (1.002-1.036)
[2017-11-26] MEDS ORDERED: ISOVUE-370 76%-LOCM 1 ML ONE (10:09)
--- NOTE | 2017-11-28 14:10 | EKG ---
Test Reason : ABD PAIN Blood Pressure : / mmHG Vent. Rate : 070 BPM Atrial Rate : 070 BPM P-R Int : 150 ms QRS Dur : 068 ms QT Int : 402 ms P-R-T Axes : 062 053 059 degrees QTc Int : 434 ms Normal sinus rhythm Normal ECG Confirmed by ZOILA LEÓN DO ([id number]), brands editor COLT BUI ([id number]) on 11/28/2017 2:09:58 PM Referred By: ROMELIA Confirmed By:ZOILA LEÓN DO
== END 2017-11-26 11:17 | disposition home or self-care (01) ==
LOC: ERS 06:48
DX: R10.11 Right upper quadrant pain (principal); R10.31 Right lower quadrant pain; R10.32 Left lower quadrant pain; K21.9 Gastro-esophageal reflux disease without esophagitis; I10 Essential (primary) hypertension; G43.909 Migraine, unspecified, not intractable, without status migrainosus; F31.9 Bipolar disorder, unspecified; F20.9 Schizophrenia, unspecified; M19.90 Unspecified osteoarthritis, unspecified site; I48.91 Unspecified atrial fibrillation; Z79.899 Other long term (current) drug therapy
CPT/HCPCS: 36415; 74177; 80053; 81003; 83690; 85025; 93005; 96360; 96372

== ENCOUNTER 2018-01-17 09:04 | Emergency (ER) | payer OTHER ==
[2018-01-17 09:48] LABS: #Eosinphils 0.1 thou/uL (0.0-0.7); #Lymphocytes 1.7 thou/uL (1.20-3.40); #Monocytes 0.4 thou/uL (0.11-0.59); #Neutrophils 3.1 thou/uL (1.40-6.50); %Basophils 0.3 % (0.0-1.0); %Eosinophils 1.8 % (0.0-10.0); %Lymphocytes 32.7 % (21.0-51.0); %Monocytes 7.2 % (0.0-10.0); Hemoglobin 13.1 g/dL (12.0-16.0); Mean Corpuscular HGB CONC 32.5 g/dL (32.0-36.0); Mean Corpuscular Hemoglobin 31.2 pg (27.0-31.0); Mean Platelet Volume 7.3 fL (7.4-10.4); Platelet Count 362 thou/uL (130-400); RBC Distribution Width 11.6 % (11.5-14.5); Red Blood Cell (RBC) Count 4.18 mill/uL (4.20-5.40); White Blood Cell (WBC) Count 5.3 thou/uL (4.8-10.8)
[2018-01-17 10:09] LABS: ALT (SGPT) 27 U/L (8-55); AST (SGOT) 30 U/L (5-34); Albumin 3.7 g/dL (3.5-5.0); Alkaline Phosphatase 138 U/L (40-150); Anion Gap 14 mmol/L (10-20); BUN (Urea Nitrogen) 12 mg/dL (9.8-20.1); Bilirubin, Total 0.3 mg/dL (0.2-1.2); CK (CPK) 139 U/L (29-168); Calc. Creatinine Clearance 0 mL/min (70-130); Calcium 8.8 mg/dL (7.8-10.44); Carbon Dioxide 20 mmol/L (22-29); Chloride 108 mmol/L (98-107); Estimated GFR-MDRD 72; Globulin 3.5 g/dL (2.4-3.5); Glucose 171 mg/dL (70-105); Potassium 3.6 mmol/L (3.5-5.1); Protein, Total 7.2 g/dL (6.0-8.3); Sodium 138 mmol/L (136-145)
[2018-01-17 10:21] LABS: CKMB 1.5 ng/mL (0-6.6)
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
--- NOTE | 2018-01-19 14:38 | EKG ---
Test Reason : Blood Pressure : / mmHG Vent. Rate : 082 BPM Atrial Rate : 082 BPM P-R Int : 130 ms QRS Dur : 078 ms QT Int : 400 ms P-R-T Axes : 057 041 071 degrees QTc Int : 467 ms Sinus rhythm with occasional Premature ventricular complexes Otherwise normal ECG Confirmed by JACOB BURLESON D.O. ([id number]), news editor COLT BUI ([id number]) on 01/19/2018 2:37:52 PM Referred By: Confirmed By:JACOB BURLESON D.O.
== END 2018-01-17 13:15 | disposition home or self-care (01) ==
LOC: ERS 09:04
DX: R07.89 Other chest pain (principal); K21.9 Gastro-esophageal reflux disease without esophagitis; I10 Essential (primary) hypertension; M06.9 Rheumatoid arthritis, unspecified; I48.91 Unspecified atrial fibrillation; G43.909 Migraine, unspecified, not intractable, without status migrainosus; F41.9 Anxiety disorder, unspecified; F32.9 Major depressive disorder, single episode, unspecified; F20.9 Schizophrenia, unspecified; F17.210 Nicotine dependence, cigarettes, uncomplicated; Z79.899 Other long term (current) drug therapy
CPT/HCPCS: 36415; 71045; 80053; 82550; 82553; 84484; 85025; 93005

== ENCOUNTER 2018-02-14 13:55 | Emergency (ER) | payer OTHER ==
[2018-02-14] MEDS ORDERED: Metoclopramide HCl 10 MG/2 ML VIAL ONE (14:29)
[2018-02-14] MEDS ORDERED: diphenhydrAMINE 50 MG/ML VIAL ONE (14:30)
[2018-02-14] MEDS ORDERED: diphenhydrAMINE 50 MG/ML VIAL IVP ONE (14:45)
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
== END 2018-02-14 15:54 | disposition home or self-care (01) ==
LOC: ERS 13:55
DX: G43.909 Migraine, unspecified, not intractable, without status migrainosus (principal); J06.9 Acute upper respiratory infection, unspecified; K21.9 Gastro-esophageal reflux disease without esophagitis; I10 Essential (primary) hypertension; I48.91 Unspecified atrial fibrillation; F41.9 Anxiety disorder, unspecified; F31.9 Bipolar disorder, unspecified; F20.9 Schizophrenia, unspecified; F17.210 Nicotine dependence, cigarettes, uncomplicated; Z79.899 Other long term (current) drug therapy
CPT/HCPCS: 71045; 87804; 96365; 96375; J1200; J2765

== ENCOUNTER 2018-05-14 11:06 | Emergency (ER) | payer OTHER ==
[2018-05-14 11:36] LABS: #Basophils 0.1 thou/uL (0.0-0.2); #Lymphocytes 1.6 thou/uL (1.20-3.40); #Monocytes 0.6 thou/uL (0.11-0.59); #Neutrophils 8.3 thou/uL (1.40-6.50); %Basophils 0.6 % (0.0-1.0); %Eosinophils 0.4 % (0.0-10.0); %Lymphocytes 15.2 % (21.0-51.0); %Monocytes 5.9 % (0.0-10.0); %Neutrophils 77.8 % (42.0-75.0); Hemoglobin 13.1 g/dL (12.0-16.0); Mean Corpuscular HGB CONC 33.8 g/dL (32.0-36.0); Mean Corpuscular Hemoglobin 32.1 pg (27.0-31.0); Mean Corpuscular Volume 94.9 fL (78.0-98.0); Mean Platelet Volume 6.8 fL (7.4-10.4); Platelet Count 345 thou/uL (130-400); RBC Distribution Width 11.5 % (11.5-14.5); Red Blood Cell (RBC) Count 4.08 mill/uL (4.20-5.40); White Blood Cell (WBC) Count 10.7 thou/uL (4.8-10.8)
[2018-05-14 12:00] LABS: ALT (SGPT) 22 U/L (8-55); AST (SGOT) 30 U/L (5-34); Albumin 4.2 g/dL (3.5-5.0); Alkaline Phosphatase 110 U/L (40-150); Anion Gap 11 mmol/L (10-20); BUN (Urea Nitrogen) 13 mg/dL (9.8-20.1); Bilirubin, Total 0.4 mg/dL (0.2-1.2); Calc. Creatinine Clearance 0 mL/min (70-130); Carbon Dioxide 29 mmol/L (22-29); Chloride 100 mmol/L (98-107); Estimated GFR-MDRD 90; Globulin 3.6 g/dL (2.4-3.5); Glucose 88 mg/dL (70-105); Potassium 3.7 mmol/L (3.5-5.1); Protein, Total 7.8 g/dL (6.0-8.3); Sodium 136 mmol/L (136-145)
[2018-05-14 12:06] LABS: Amphetamine Not Detected (NotDetected); Barbiturates Screen Detected (NotDetected); Benzodiazepine Screen Not Detected (NotDetected); Cocaine Metabolite Screen Detected (NotDetected); Medtox Control Line Valid? VALID (VALID); Medtox Reader # READER 1; Methadone Not Detected (NotDetected); Methamphetamine Not Detected (NotDetected); Opiate Screen Not Detected (NotDetected); Oxycodone Screen Not Detected (NotDetected); Phencyclidine (PCP) Not Detected (NotDetected); THC/Cannabinoid Screen Not Detected (NotDetected); Tricyclic Screen Detected (NotDetected)
[2018-05-14 13:15] LABS: Acetaminophen Less than 6.0 mcg/mL (10.0-30.0); Alcohol Less than 10 mg/dL (Less than 10); Salicylate Less than 8.0 mg/dL (15.0-30.0)
[2018-05-14] MEDS ORDERED: Acetaminophen 500 MG TAB ONE (13:59)
[2018-05-14] MEDS ORDERED: Ondansetron ODT 8 MG TAB ONE (16:17)
[2018-05-14] MEDS ORDERED: hydrOXYzine 25 MG TAB ONE ×2 (16:17)
[2018-05-14] MEDS ORDERED: PARoxetine 20 MG TAB PO SCH (17:45)
[2018-05-14] MEDS ORDERED: Atorvastatin Calcium 10 MG TAB PO SCH (20:00)
[2018-05-14] MEDS ORDERED: Atorvastatin Calcium 20 MG TAB PO SCH (21:00)
[2018-05-14] MEDS ORDERED: Mirtazapine 15 MG TAB PO SCH (21:00)
[2018-05-14] MEDS ORDERED: Lurasidone HCl 40 MG TABLET PO SCH (21:00)
[2018-05-15] MEDS ORDERED: Atorvastatin Calcium 20 MG TAB PO SCH (21:00)
== END 2018-05-14 21:19 ==
LOC: ERS 11:06
DX: S61.512A Laceration without foreign body of left wrist, initial encounter (principal); M19.90 Unspecified osteoarthritis, unspecified site; K21.9 Gastro-esophageal reflux disease without esophagitis; I10 Essential (primary) hypertension; M06.9 Rheumatoid arthritis, unspecified; I48.91 Unspecified atrial fibrillation; F31.9 Bipolar disorder, unspecified; F41.9 Anxiety disorder, unspecified; F17.210 Nicotine dependence, cigarettes, uncomplicated; X78.9XXA Intentional self-harm by unspecified sharp object, initial encounter; Z79.899 Other long term (current) drug therapy
CPT/HCPCS: 12001; 36415; 80053; 80306; 80307; 85025

== ENCOUNTER 2018-07-14 17:10 | Emergency (ER) | payer OTHER ==
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
[2018-07-14 17:48] LABS: Hemoglobin 13.3 g/dL (12.0-16.0); Mean Corpuscular HGB CONC 33.5 g/dL (32.0-36.0); Mean Corpuscular Hemoglobin 31.3 pg (27.0-31.0); Mean Corpuscular Volume 93.3 fL (78.0-98.0); Mean Platelet Volume 6.7 fL (7.4-10.4); Platelet Count 358 thou/uL (130-400); Red Blood Cell (RBC) Count 4.26 mill/uL (4.20-5.40)
[2018-07-14 18:00] LABS: Band 7 % (5-11); Lymphocytes 8 % (21-51); MDiff Complete? YES; Monocytes 4 % (0-10); Neutrophil 81 % (42-75); Platelet Morphology Comment Appears Adequate; RBC Morphology Normal; Vacuoles SLIGHT
[2018-07-14 18:06] LABS: Acetaminophen Less than 6.0 mcg/mL (10.0-30.0); Alcohol Less than 10 mg/dL (Less than 10); Salicylate Less than 8.0 mg/dL (15.0-30.0)
[2018-07-14 18:08] LABS: ALT (SGPT) 23 U/L (8-55); AST (SGOT) 27 U/L (5-34); Albumin 4.3 g/dL (3.5-5.0); Alcohol Less than 10 mg/dL (Less than 10); Alkaline Phosphatase 110 U/L (40-150); Anion Gap 14 mmol/L (10-20); BUN (Urea Nitrogen) 17 mg/dL (9.8-20.1); Bilirubin, Total 0.6 mg/dL (0.2-1.2); Calc. Creatinine Clearance 0 mL/min (70-130); Calcium 9.9 mg/dL (7.8-10.44); Carbon Dioxide 29 mmol/L (22-29); Chloride 101 mmol/L (98-107); Estimated GFR-MDRD 75; Globulin 3.5 g/dL (2.4-3.5); Glucose 114 mg/dL (70-105); Potassium 3.8 mmol/L (3.5-5.1); Protein, Total 7.8 g/dL (6.0-8.3); Sodium 140 mmol/L (136-145)
[2018-07-14] MEDS ORDERED: Acetaminophen 500 MG TAB ONE ×2 (19:07→20:00)
[2018-07-14] MEDS ORDERED: Lorazepam 1 MG TAB ONE ×2 (19:16→20:00)
[2018-07-14 19:37] LABS: Bilirubin Negative (Negative); Blood, Urine Negative (Negative); Clarity CLOUDY (Clear); Glucose, Urine (Dipstick) Negative (Negative); Leukocyte Negative (Negative); Nitrite Negative (Negative); Protein, Urine (Dipstick) 30 mg/dL (Neg-Trace); Specific Gravity, Urine 1.024 (1.002-1.036); Urobilinogen 0.2 mg/dL (0.2-1.0)
[2018-07-14 19:40] LABS: Bacteria/HPF 1+ HPF (None Seen); Hyaline Casts/LPF 0-3 HYALINE CAST LPF (0-3 Hyaline); Pathc Cast-AUWi Flag 0.54 (0-2.49); RBC/HPF 0-3 HPF (0-3)
[2018-07-14 19:47] LABS: Amphetamine Detected (NotDetected); Barbiturates Screen Detected (NotDetected); Cocaine Metabolite Screen Detected (NotDetected); Medtox Reader # READER 4; Methamphetamine Detected (NotDetected); Phencyclidine (PCP) Not Detected (NotDetected); THC/Cannabinoid Screen Not Detected (NotDetected)
[2018-07-14 19:48] LABS: Benzodiazepine Screen Not Detected (NotDetected); Medtox Control Line Valid? VALID (VALID); Methadone Not Detected (NotDetected); Opiate Screen Not Detected (NotDetected); Oxycodone Screen Not Detected (NotDetected); Tricyclic Screen Not Detected (NotDetected)
[2018-07-15] MEDS ORDERED: Ibuprofen 200 MG TAB ONE (00:18)
[2018-07-15] MEDS ORDERED: cefTRIAXone\\ROCEPHIN 1 GM VIAL ONE (00:33)
[2018-07-15] MEDS ORDERED: Sodium Chloride 0.9% 100 ML ONE (00:34)
[2018-07-16 19:29] LABS: Chlam.trachomatis by PCR,Urine Not Detected (NotDetected)
== END 2018-07-15 01:35 | disposition short-term general hospital (02) ==
LOC: ERS 17:10
DX: T76.21XA Adult sexual abuse, suspected, initial encounter (principal); R41.82 Altered mental status, unspecified; F19.10 Other psychoactive substance abuse, uncomplicated; N39.0 Urinary tract infection, site not specified; K21.9 Gastro-esophageal reflux disease without esophagitis; I48.91 Unspecified atrial fibrillation; G43.909 Migraine, unspecified, not intractable, without status migrainosus; I10 Essential (primary) hypertension; F41.9 Anxiety disorder, unspecified; F31.9 Bipolar disorder, unspecified; F20.9 Schizophrenia, unspecified; M06.9 Rheumatoid arthritis, unspecified; F17.210 Nicotine dependence, cigarettes, uncomplicated; Z86.73 Personal history of transient ischemic attack (TIA), and cerebral infarction without residual deficits; Z79.899 Other long term (current) drug therapy
CPT/HCPCS: 36415; 71045; 80053; 80306; 80307; 81003; 81015; 84484; 85025; 87086; 87491; 87591; 87804; 93005; 96361; 96365; J0696; J3490

== ENCOUNTER 2018-11-20 14:13 | Emergency (ER) | payer OTHER ==
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
[2018-11-20 15:10] LABS: #Eosinphils 0.2 thou/uL (0.0-0.7); #Lymphocytes 1.8 thou/uL (1.20-3.40); #Monocytes 0.5 thou/uL (0.11-0.59); #Neutrophils 3.7 thou/uL (1.40-6.50); %Basophils 0.5 % (0.0-1.0); %Monocytes 8.4 % (0.0-10.0); %Neutrophils 59.2 % (42.0-75.0); Hemoglobin 12.9 g/dL (12.0-16.0); Mean Corpuscular HGB CONC 33.5 g/dL (32.0-36.0); Mean Corpuscular Hemoglobin 31.9 pg (27.0-31.0); Mean Corpuscular Volume 95.1 fL (78.0-98.0); Mean Platelet Volume 6.8 fL (7.4-10.4); Platelet Count 373 thou/uL (130-400); RBC Distribution Width 11.4 % (11.5-14.5); Red Blood Cell (RBC) Count 4.05 mill/uL (4.20-5.40); White Blood Cell (WBC) Count 6.2 thou/uL (4.8-10.8)
[2018-11-20 15:32] LABS: ALT (SGPT) 21 U/L (8-55); AST (SGOT) 28 U/L (5-34); Albumin 3.8 g/dL (3.5-5.0); Alkaline Phosphatase 110 U/L (40-110); Anion Gap 11 mmol/L (10-20); BUN (Urea Nitrogen) 13 mg/dL (9.8-20.1); Bilirubin, Total 0.2 mg/dL (0.2-1.2); Calc. Creatinine Clearance 0 mL/min (70-130); Calcium 9.3 mg/dL (7.8-10.44); Carbon Dioxide 27 mmol/L (22-29); Chloride 107 mmol/L (98-107); Estimated GFR-MDRD 73; Globulin 3.4 g/dL (2.4-3.5); Glucose 78 mg/dL (70-105); Potassium 3.9 mmol/L (3.5-5.1); Protein, Total 7.2 g/dL (6.0-8.3); Sodium 141 mmol/L (136-145)
[2018-11-20 17:26] LABS: Acetaminophen Less than 6.0 mcg/mL (10.0-30.0); Alcohol Less than 10 mg/dL (Less than 10); CK (CPK) 314 U/L (29-168); Salicylate Less than 8.0 mg/dL (15.0-30.0)
[2018-11-20] MEDS ORDERED: Ibuprofen 800 MG TAB ONE (17:35)
--- NOTE | 2018-11-23 23:15 | EKG ---
Test Reason : Blood Pressure : / mmHG Vent. Rate : 087 BPM Atrial Rate : 087 BPM P-R Int : 142 ms QRS Dur : 064 ms QT Int : 366 ms P-R-T Axes : 071 018 064 degrees QTc Int : 440 ms Normal sinus rhythm Septal infarct , age undetermined Abnormal ECG Confirmed by MERARY BROCK, SORAIDA ([id number]), editor book GIORGI GLASS ([id number]) on 11/23/2018 11:15:24 PM Referred By: Confirmed By:SORAIDA REAGAN MD
== END 2018-11-20 22:23 ==
LOC: ERS 14:13
DX: F20.9 Schizophrenia, unspecified (principal); K21.9 Gastro-esophageal reflux disease without esophagitis; I10 Essential (primary) hypertension; G43.909 Migraine, unspecified, not intractable, without status migrainosus; F17.210 Nicotine dependence, cigarettes, uncomplicated; Z79.899 Other long term (current) drug therapy
CPT/HCPCS: 36415; 71045; 80053; 80307; 82550; 84443; 84484; 85025; 93005

== ENCOUNTER 2018-12-13 14:24 | Observation (INO) | payer OTHER ==
[2018-12-13 15:53] LABS: Hemoglobin 13.6 g/dL (12.0-16.0); Mean Corpuscular HGB CONC 34.1 g/dL (32.0-36.0); Mean Corpuscular Hemoglobin 31.5 pg (27.0-31.0); Mean Corpuscular Volume 92.2 fL (78.0-98.0); Mean Platelet Volume 6.8 fL (7.4-10.4); Platelet Count 381 thou/uL (130-400); RBC Distribution Width 11.1 % (11.5-14.5); Red Blood Cell (RBC) Count 4.32 mill/uL (4.20-5.40); White Blood Cell (WBC) Count 13.6 thou/uL (4.8-10.8)
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
[2018-12-13 16:07] LABS: Band 16 % (5-11); Eosinophils 1 % (0-10); Lymphocytes 10 % (21-51); MDiff Complete? YES; Monocytes 1 % (0-10); Neutrophil 71 % (42-75); Platelet Morphology Comment Appears Adequate; RBC Morphology Normal; Reactive Lymphocytes 1 % (0-10); Vacuoles SLIGHT
[2018-12-13 16:08] LABS: Acetaminophen Less than 6.0 mcg/mL (10.0-30.0); Alcohol Less than 10 mg/dL (Less than 10); CK (CPK) 235 U/L (29-168); Salicylate Less than 8.0 mg/dL (15.0-30.0)
[2018-12-13 16:08] LABS: Bacteria/HPF None Seen HPF (None Seen); Bilirubin Negative (Negative); Blood, Urine Trace (Negative); Clarity Clear (Clear); Glucose, Urine (Dipstick) Normal (Negative); Leukocyte Negative Leu/uL (Negative); Nitrite Negative (Negative); Protein, Urine (Dipstick) 20 mg/dL (Neg-Trace); RBC/HPF 0-3 HPF (0-3); Squamous Epithelial 0-3 HPF (0-3); Urobilinogen Normal mg/dL (Less than 2)
[2018-12-13 16:09] LABS: ALT (SGPT) 18 U/L (8-55); AST (SGOT) 23 U/L (5-34); Albumin 4.4 g/dL (3.5-5.0); Alkaline Phosphatase 100 U/L (40-110); Anion Gap 14 mmol/L (10-20); BUN (Urea Nitrogen) 15 mg/dL (9.8-20.1); Bilirubin, Total 0.6 mg/dL (0.2-1.2); Calc. Creatinine Clearance 0 mL/min (70-130); Calcium 9.8 mg/dL (7.8-10.44); Carbon Dioxide 28 mmol/L (22-29); Chloride 98 mmol/L (98-107); Estimated GFR-MDRD 78; Glucose 109 mg/dL (70-105); Protein, Total 8.4 g/dL (6.0-8.3); Sodium 136 mmol/L (136-145)
[2018-12-13 16:17] LABS: Barbiturates Screen Detected (NotDetected); Cocaine Metabolite Screen Detected (NotDetected); Medtox Reader # READER 1; Methamphetamine Not Detected (NotDetected); Phencyclidine (PCP) Not Detected (NotDetected); THC/Cannabinoid Screen Not Detected (NotDetected)
[2018-12-13 16:18] LABS: Amphetamine Not Detected (NotDetected); Benzodiazepine Screen Not Detected (NotDetected); Medtox Control Line Valid? VALID (VALID); Methadone Not Detected (NotDetected); Opiate Screen Not Detected (NotDetected); Oxycodone Screen Not Detected (NotDetected); Tricyclic Screen Not Detected (NotDetected)
[2018-12-13] MEDS ORDERED: Acetaminophen 500 MG TAB ONE (16:50)
[2018-12-13] MEDS ORDERED: cefTRIAXone\\ROCEPHIN 2 GM VIAL ONE (18:12)
[2018-12-13] MEDS ORDERED: Azithromycin 500 MG in Sodium Chloride 0.9% 250 ML 250 ML IVPB SCH (18:30)
--- NOTE | 2018-12-13 20:43 | CT ---
CT angiogram of chest performed with intravenous contrast enhancement with 3-D reconstructions HISTORY: Hemoptysis. Shortness of breath. COMPARISON: Chest x-ray done earlier today. FINDINGS: Bibasilar atelectatic lung changes are seen with more interstitial opacities seen within th e right lower middle and upper lobe regions. This could represent a pneumonitis. There is no significant mediastinal or hilar lymphadenopathy. Coronary artery calcifications are seen . There is a moderate hiatal hernia. The thoracic aorta is normal in caliber. The pulmonary artery opacification is limited there is no signs of any central pulmonary embolus, per ipheral emboli are not excluded. The visualized liver parenchyma is normal. The gallbladder has been removed. IMPRESSION: 1. No CT evidence for pulmonary embolus. 2. Patchy mainly interstitial opacities more prominent within the right lung suggesting a pneumonitis .
[2018-12-13] MEDS ORDERED: Ondansetron ODT 4 MG TAB SL PRN (22:57)
[2018-12-13] MEDS ORDERED: Ondansetron PF 4 MG/2 ML Vial IVP PRN (22:57)
[2018-12-13] MEDS ORDERED: Sodium Chloride 0.9% 1,000 ML IV SCH (22:57)
[2018-12-14 02:04] VITALS: BMI 28.2
[2018-12-14] MEDS ORDERED: hydrALAZINE 20 MG/ML VIAL SLOW IVP PRN (02:04)
[2018-12-14] MEDS: Sodium Chloride 0.9% 1,000 ML IV SCH ×3 (03:10→23:58)
[2018-12-14] MEDS: Acetaminophen 500 MG TAB PO PRN ×4 (05:11→23:53)
[2018-12-14] MEDS ORDERED: Lidocaine 2% Viscous Solution 10 ML, Aluminum & Magnesium Hydroxide 30 ML SSW SCH (05:30)
[2018-12-14] MEDS: Calcium Carbonate 500 MG ChewTAB PO PRN ×3 (08:08→17:24)
[2018-12-14 08:30] LABS: Hemoglobin 12.4 g/dL (12.0-16.0); Mean Corpuscular HGB CONC 33.1 g/dL (32.0-36.0); Mean Corpuscular Volume 96.6 fL (78.0-98.0); Mean Platelet Volume 7.2 fL (7.4-10.4); Platelet Count 337 thou/uL (130-400); RBC Distribution Width 11.3 % (11.5-14.5); Red Blood Cell (RBC) Count 3.89 mill/uL (4.20-5.40); White Blood Cell (WBC) Count 17.6 thou/uL (4.8-10.8)
[2018-12-14 08:54] LABS: ALT (SGPT) 13 U/L (8-55); AST (SGOT) 20 U/L (5-34); Albumin 3.6 g/dL (3.5-5.0); Alkaline Phosphatase 78 U/L (40-110); Anion Gap 14 mmol/L (10-20); BUN (Urea Nitrogen) 13 mg/dL (9.8-20.1); Bilirubin, Total 0.5 mg/dL (0.2-1.2); Calc. Creatinine Clearance 81 mL/min (70-130); Calcium 8.4 mg/dL (7.8-10.44); Carbon Dioxide 23 mmol/L (22-29); Chloride 103 mmol/L (98-107); Estimated GFR-MDRD 74; Globulin 3.4 g/dL (2.4-3.5); Glucose 99 mg/dL (70-105); Potassium 3.8 mmol/L (3.5-5.1); Sodium 136 mmol/L (136-145)
[2018-12-14] MEDS ORDERED: Famotidine/PF 20 mg/2ml Vial SLOW IVP SCH (09:00)
[2018-12-14 09:06] LABS: Eosinophils 1 % (0-10); Lymphocytes 21 % (21-51); MDiff Complete? YES; Monocytes 3 % (0-10); Neutrophil 73 % (42-75); Platelet Morphology Comment Appears Adequate; Reactive Lymphocytes 2 % (0-10)
[2018-12-14] MEDS: Famotidine 20 MG TAB PO SCH ×2 (11:41→20:41)
[2018-12-14] MEDS ORDERED: Alendronate Sodium 70 mg Tablet PO SCH (12:00)
[2018-12-14] MEDS ORDERED: Dicyclomine 20 MG TAB PO PRN (12:00)
[2018-12-15] MEDS ORDERED: Ondansetron PF 4 MG/2 ML Vial SLOW IVP PRN (05:00)
[2018-12-15 07:29] LABS: #Eosinphils 0.1 thou/uL (0.0-0.7); #Lymphocytes 1.6 thou/uL (1.20-3.40); #Monocytes 0.7 thou/uL (0.11-0.59); #Neutrophils 5.6 thou/uL (1.40-6.50); %Basophils 0.4 % (0.0-1.0); %Eosinophils 1.5 % (0.0-10.0); %Lymphocytes 19.8 % (21.0-51.0); %Monocytes 8.5 % (0.0-10.0); %Neutrophils 69.8 % (42.0-75.0); Hemoglobin 10.4 g/dL (12.0-16.0); Mean Corpuscular HGB CONC 32.8 g/dL (32.0-36.0); Mean Corpuscular Hemoglobin 31.4 pg (27.0-31.0); Mean Corpuscular Volume 95.5 fL (78.0-98.0); Mean Platelet Volume 6.9 fL (7.4-10.4); Platelet Count 297 thou/uL (130-400); RBC Distribution Width 11.3 % (11.5-14.5); Red Blood Cell (RBC) Count 3.31 mill/uL (4.20-5.40); White Blood Cell (WBC) Count 8.1 thou/uL (4.8-10.8)
[2018-12-15 07:45] LABS: Anion Gap 11 mmol/L (10-20); BUN (Urea Nitrogen) 6 mg/dL (9.8-20.1); Calc. Creatinine Clearance 112 mL/min (70-130); Carbon Dioxide 24 mmol/L (22-29); Chloride 109 mmol/L (98-107); Estimated GFR-MDRD Greater than 90; Glucose 104 mg/dL (70-105); Potassium 3.7 mmol/L (3.5-5.1); Sodium 140 mmol/L (136-145)
[2018-12-15] MEDS: Hydrochlorothiazide 25 MG TAB PO SCH (08:38)
[2018-12-15] MEDS: Calcium Carbonate 500 MG ChewTAB PO PRN ×2 (08:38→20:15)
[2018-12-15] MEDS: Benzonatate 100 MG CAP PO PRN (08:39)
[2018-12-15] MEDS: Mirtazapine 15 MG TAB PO SCH (08:39)
[2018-12-15] MEDS: Atorvastatin Calcium 20 MG TAB PO SCH (08:40)
[2018-12-15] MEDS: Famotidine 20 MG TAB PO SCH ×2 (08:40→20:15)
[2018-12-15] MEDS: Loratadine 10 MG TAB PO SCH (08:41)
[2018-12-15] MEDS: PARoxetine 20 MG TAB PO SCH (08:41)
[2018-12-15] MEDS ORDERED: TRIAMTERENE 37.5 MG PO SCH (09:00)
[2018-12-15] MEDS: Amlodipine 5 MG TAB PO SCH (10:04)
--- NOTE | 2018-12-15 16:51 | PDOC.HOSPP ---
- Subjective Encounter Date: 12/15/18 Encounter Time: 16:49 Subjective: Pt seen for followup re: pneumonia. Feels better, no complaints. - Objective Vital Signs & Weight: Vital Signs (12 hours) Temp Pulse Resp BP Pulse Ox 12/15/18 15:13 97.4 F L 96 16 113/56 L 93 L 12/15/18 14:25 85 20 100 12/15/18 10:04 73 12/15/18 07:52 97.8 F 73 17 96/58 L 94 L 12/15/18 07:15 81 18 99 Weight Admit Weight 175 lb Weight 175 lb Result Diagrams: 12/15/18 07:12 12/15/18 07:12 Additional Labs: Labs and MARs reviewed by id Hospitalist ROS - Review of Systems Respiratory: denies: cough, dry, shortness of breath, hemoptysis, SOB with excertion, pleuritic pain, sputum, wheezing Cardiovascular: denies: chest pain, palpitations, orthopnea, paroxysmal noc. dyspnea, edema, light headedness - Medication Medications: Active Medications Generic Name Dose Route Start Last Admin Trade Name Freq PRN Reason Stop Dose Admin Acetaminophen 1,000 mg 12/14/18 02:04 12/14/18 23:53 Tylenol PO 1,000 mg Q6H PRN Administration Mild Pain (1-3) Albuterol/Ipratropium 3 ml 12/14/18 07:00 12/15/18 14:25 Duoneb NEB 3 ml [id number] GABI Administration Amlodipine Besylate 5 mg 12/15/18 09:00 12/15/18 10:04 Norvasc PO Not Given DAILY GABI Atorvastatin Calcium 20 mg 12/15/18 09:00 12/15/18 08:40 Lipitor PO 20 mg DAILY GABI Administration Benzonatate 100 mg 12/14/18 02:04 12/15/18 08:39 Tessalon PO 100 mg Q6H PRN Administration Cough Calcium Carbonate 1,000 mg 12/14/18 02:04 12/15/18 08:38 Tums PO 1,000 mg Q4H PRN Administration Heartburn or Indigestion Famotidine 20 mg 12/14/18 09:00 12/15/18 08:40 Pepcid PO 20 mg BID GABI Administration Hydrochlorothiazide 25 mg 12/15/18 09:00 12/15/18 08:38 Hydrochlorothiazide PO 25 mg DAILY GABI Administration Sodium Chloride 1,000 mls @ 75 mls/hr 12/14/18 02:04 12/14/18 23:58 Normal Saline 0.9% IV 1,000 mls .[id number] GABI Administration Levofloxacin 500 mg 12/14/18 06:00 12/15/18 06:27 Levaquin PO 500 mg 0600 GABI Administration Loratadine 10 mg 12/15/18 09:00 12/15/18 08:41 Claritin PO 10 mg DAILY GABI Administration Mirtazapine 15 mg 12/15/18 09:00 12/15/18 08:39 Remeron PO 15 mg DAILY GABI Administration Ondansetron HCl 4 mg 12/15/18 05:00 12/15/18 05:21 Zofran SLOW IVP 4 mg Q6H PRN Administration Nausea Paroxetine HCl 20 mg 12/15/18 09:00 12/15/18 08:41 Paxil PO 20 mg DAILY GABI Administration Phenytoin Sodium 300 mg 12/15/18 09:00 12/15/18 08:39 Dilantin Er PO 300 mg DAILY GABI Administration Quetiapine Fumarate 300 mg 12/14/18 21:00 12/15/18 08:38 Seroquel PO 300 mg BID GABI Administration - Exam General Appearance: NAD Eye: anicteric sclera ENT: moist mucosa Neck: supple Heart: RRR Respiratory: CTAB Gastrointestinal: soft, non-tender Extremities: no clubbing Musculoskeletal: normal tone, normal strength Psychiatric: normal affect, normal behavior Hosp A/P (1) Pneumonia Code(s): J18.9 - PNEUMONIA, UNSPECIFIED ORGANISM Status: Acute (2) Suicidal ideation Code(s): R45.851 - SUICIDAL IDEATIONS Status: Acute (3) GERD (gastroesophageal reflux disease) Code(s): K21.9 - GASTRO-ESOPHAGEAL REFLUX DISEASE WITHOUT ESOPHAGITIS Status: Chronic (4) Hypertension, benign Code(s): I10 - ESSENTIAL (PRIMARY) HYPERTENSION Status: Chronic - Plan continue antibiotics, out of bed/ambulate Continue levofloxacin. Pt seen by [facility], has safety plan. Pt likely home later today or tomorrow.
[2018-12-15] MEDS: Sodium Chloride 0.9% 1,000 ML IV SCH (19:26)
[2018-12-16] MEDS: Benzonatate 100 MG CAP PO PRN (01:32)
[2018-12-16] MEDS: Calcium Carbonate 500 MG ChewTAB PO PRN (01:32)
[2018-12-16] MEDS: Acetaminophen 500 MG TAB PO PRN ×2 (01:36→09:14)
[2018-12-16] MEDS ORDERED: Ondansetron ODT 4 MG TAB PO PRN (01:49)
[2018-12-16] MEDS: Sodium Chloride 0.9% 1,000 ML IV SCH (05:17)
[2018-12-16 05:44] LABS: #Basophils 0.1 thou/uL (0.0-0.2); #Eosinphils 0.3 thou/uL (0.0-0.7); #Lymphocytes 1.6 thou/uL (1.20-3.40); #Monocytes 0.5 thou/uL (0.11-0.59); #Neutrophils 5.1 thou/uL (1.40-6.50); %Basophils 0.9 % (0.0-1.0); %Eosinophils 3.8 % (0.0-10.0); %Lymphocytes 21.1 % (21.0-51.0); %Neutrophils 67.2 % (42.0-75.0); Hemoglobin 11.4 g/dL (12.0-16.0); Mean Corpuscular HGB CONC 32.3 g/dL (32.0-36.0); Mean Corpuscular Hemoglobin 31.1 pg (27.0-31.0); Mean Corpuscular Volume 96.2 fL (78.0-98.0); Mean Platelet Volume 8.2 fL (7.4-10.4); Platelet Count 226 thou/uL (130-400); RBC Distribution Width 11.3 % (11.5-14.5); Red Blood Cell (RBC) Count 3.68 mill/uL (4.20-5.40); White Blood Cell (WBC) Count 7.5 thou/uL (4.8-10.8)
[2018-12-16 06:00] LABS: Anion Gap 14 mmol/L (10-20); BUN (Urea Nitrogen) 6 mg/dL (9.8-20.1); Calc. Creatinine Clearance 103 mL/min (70-130); Calcium 9.4 mg/dL (7.8-10.44); Carbon Dioxide 23 mmol/L (22-29); Chloride 104 mmol/L (98-107); Estimated GFR-MDRD Greater than 90; Glucose 94 mg/dL (70-105); Potassium 4.4 mmol/L (3.5-5.1); Sodium 137 mmol/L (136-145)
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
[2018-12-16] MEDS: Amlodipine 5 MG TAB PO SCH (09:03)
[2018-12-16] MEDS: Atorvastatin Calcium 20 MG TAB PO SCH (09:03)
[2018-12-16] MEDS: Mirtazapine 15 MG TAB PO SCH (09:03)
[2018-12-16] MEDS: Hydrochlorothiazide 25 MG TAB PO SCH (09:03)
[2018-12-16] MEDS: PARoxetine 20 MG TAB PO SCH (09:03)
[2018-12-16] MEDS: Loratadine 10 MG TAB PO SCH (09:05)
[2018-12-16 09:06] VITALS: BP 125/69
[2018-12-16 09:34] VITALS: TEMP 98.3
--- NOTE | 2018-12-16 12:10 | DIS ---
DATE OF ADMISSION: 12/13/2018 DATE OF DISCHARGE: 12/16/2018 PRIMARY CARE PROVIDER: Dr. Ritchie Correa. DISCHARGE DIAGNOSES: 1. Community-acquired pneumonia. 2. Suicidal ideation. 3. Crack cocaine use. CONDITION OF PATIENT ON THE DAY OF DISCHARGE: Stable. I assessed Ms. Anguiano on the day of discharge. She denies any chest pain or shortness of breath. Vital signs are stable. S1 and S2 are heard, regular. Lungs are clear to auscultation bilaterally. DISCHARGE MEDICATIONS: Hydrochlorothiazide and amlodipine were held. She has been started on levofloxacin 750 mg daily for 1 week. Otherwise, the rest of her home medications were continued, which include; 1. Fosamax 70 mg every week. 2. Lipitor 20 mg daily. 3. Cetirizine 10 mg daily. 4. Bentyl 20 mg every 8 hours as needed. 5. Mirtazapine 15 mg daily. 6. Paroxetine 20 mg daily. 7. Phenytoin 300 mg daily. 8. Seroquel 300 mg 2 times a day. 9. Triamterene 37.5 mg daily. HOSPITAL COURSE: Ms. Anguiano is a pleasant 58-year-old lady, who was admitted to [facility] on December 13, [address] Fregoso for community-acquired pneumonia. She had presented to the emergency room for suicidal ideation. She reportedly smoked crack cocaine on the day of admission. She was treated with antibiotics and improved clinically. She was maintaining good oxygen saturations and ambulating in the hallways. She was evaluated by [facility] and came up with a safety plan after discussion with the patient and patient's sister. She has been cleared for discharge. Her blood pressures were low during this hospitalization. Therefore, her amlodipine and hydrochlorothiazide were held. Triamterene is being continued for now. She has been advised to check her blood pressure and heart rate 3 times a day and show the readings to her primary care provider. POST-DISCHARGE FOLLOWUP: The patient is advised to follow up with primary care provider in 3 to 5 days. Many thanks for allowing me to participate in your patient's care. Please feel free to contact me with any questions or concerns. DISCHARGE DESTINATION: Home. Job ID: [id number]
--- NOTE | 2018-12-17 01:31 | DIS ---
DATE OF ADMISSION: 12/13/2018 DATE OF DISCHARGE: 12/16/2018 PRIMARY CARE PROVIDER: Dr. Ritchie Correa. DISCHARGE DIAGNOSES: 1. Community-acquired pneumonia. 2. Suicidal ideation. CONDITION OF PATIENT ON THE DAY OF DISCHARGE: Stable. I assessed Ms. Anguiano on the day of discharge. She denies any chest pain or shortness of breath. S1 and S2 are heard, regular. Lungs are clear. Please note that this is a second discharge summary I am dictating on Ms. Anguiano. I dictated a discharge summary on 12/15/2018. The patient could not go home that day because she did not have a ride. She was able to get a ride on 12/16, and is being discharged on 12/16. HOSPITAL COURSE: As dictated in my discharge summary dated 12/15/2018. DISCHARGE MEDICATIONS: As dictated in my discharge summary dated on 12/15/2018. POST-DISCHARGE FOLLOWUP: With primary care provider in 3 to 5 days. DISCHARGE DESTINATION: Home. Job ID: [id number]
== END 2018-12-16 09:23 | disposition home or self-care (01) ==
LOC: ERS 14:24 → T4-A 23:03
PROVIDERS: ADMIT Internal Medicine; ATTEND Internal Medicine
DX: J18.9 Pneumonia, unspecified organism (principal); R45.851 Suicidal ideations; F14.10 Cocaine abuse, uncomplicated; I69.334 Monoplegia of upper limb following cerebral infarction affecting left non-dominant side; K21.9 Gastro-esophageal reflux disease without esophagitis; I10 Essential (primary) hypertension; I48.91 Unspecified atrial fibrillation; F41.9 Anxiety disorder, unspecified; F31.9 Bipolar disorder, unspecified; F25.9 Schizoaffective disorder, unspecified; F17.210 Nicotine dependence, cigarettes, uncomplicated; Z79.83 Long term (current) use of bisphosphonates; Z79.899 Other long term (current) drug therapy; Z88.0 Allergy status to penicillin; Z88.6 Allergy status to analgesic agent
CPT/HCPCS: 36415; 51701; 71045; 71275; 80048; 80053; 80306; 80307; 81003; 81015; 82550; 83605; 83735; 83880; 84443; 84484; 85007; 85025; 85027; 87040; 87070; 87205; 87804; 93005; 94640; 94760; 96361; 96365; 96367; 96375; 96376; A4353; G0378; J0456; J0696; J2405; J7050; J7620; Q0162; Q9966

== ENCOUNTER 2019-02-14 14:48 | Emergency (ER) | payer OTHER ==
[2019-02-14 15:48] LABS: #Eosinphils 0.1 thou/uL (0.0-0.7); #Lymphocytes 1.8 thou/uL (1.20-3.40); #Monocytes 0.6 thou/uL (0.11-0.59); #Neutrophils 4.8 thou/uL (1.40-6.50); %Basophils 0.6 % (0.0-1.0); %Eosinophils 1.5 % (0.0-10.0); %Monocytes 7.5 % (0.0-10.0); %Neutrophils 65.4 % (42.0-75.0); Mean Corpuscular HGB CONC 31.8 g/dL (32.0-36.0); Mean Corpuscular Hemoglobin 29.6 pg (27.0-31.0); Mean Corpuscular Volume 93.1 fL (78.0-98.0); Mean Platelet Volume 7.2 fL (7.4-10.4); Platelet Count 382 thou/uL (130-400); RBC Distribution Width 11.4 % (11.5-14.5); Red Blood Cell (RBC) Count 4.38 mill/uL (4.20-5.40); White Blood Cell (WBC) Count 7.4 thou/uL (4.8-10.8)
[2019-02-14 16:08] LABS: ALT (SGPT) 10 U/L (8-55); AST (SGOT) 20 U/L (5-34); Acetaminophen Less than 6.0 mcg/mL (10.0-30.0); Albumin 3.9 g/dL (3.5-5.0); Alcohol Less than 10 mg/dL (Less than 10); Alkaline Phosphatase 136 U/L (40-110); Anion Gap 12 mmol/L (10-20); BUN (Urea Nitrogen) 9 mg/dL (9.8-20.1); Bilirubin, Total 0.2 mg/dL (0.2-1.2); Calc. Creatinine Clearance 0 mL/min (70-130); Carbon Dioxide 29 mmol/L (22-29); Chloride 106 mmol/L (98-107); Estimated GFR-MDRD 61; Globulin 3.6 g/dL (2.4-3.5); Glucose 65 mg/dL (70-105); Potassium 3.8 mmol/L (3.5-5.1); Protein, Total 7.5 g/dL (6.0-8.3); Salicylate Less than 8.0 mg/dL (15.0-30.0); Sodium 143 mmol/L (136-145)
[2019-02-14 16:11] LABS: Dilantin 4.7 ug/mL (10.0-20.0)
[2019-02-14 16:53] LABS: Bilirubin Negative (Negative); Blood, Urine Negative (Negative); Glucose, Urine (Dipstick) Negative (Negative); Leukocyte Large (Negative); Nitrite Negative (Negative); Protein, Urine (Dipstick) Negative (Neg-Trace); Urobilinogen 0.2 mg/dL (Less than 2)
[2019-02-14 16:55] LABS: Clarity Cloudy (Clear)
[2019-02-14 16:57] LABS: RBC/HPF None Seen HPF (0-3); WBC/HPF 0-3 HPF (0-3)
[2019-02-14 16:58] LABS: Bacteria/HPF 1+ HPF (None Seen); Squamous Epithelial 0-3 HPF (0-3)
[2019-02-14 17:42] LABS: Amphetamine Not Detected (NotDetected); Barbiturates Screen Detected (NotDetected); Benzodiazepine Screen Not Detected (NotDetected); Cocaine Metabolite Screen Detected (NotDetected); Medtox Control Line Valid? VALID (VALID); Medtox Reader # READER 4; Methadone Not Detected (NotDetected); Methamphetamine Not Detected (NotDetected); Opiate Screen Not Detected (NotDetected); Oxycodone Screen Not Detected (NotDetected); Phencyclidine (PCP) Not Detected (NotDetected); THC/Cannabinoid Screen Not Detected (NotDetected); Tricyclic Screen Not Detected (NotDetected)
== END 2019-02-15 08:38 ==
LOC: ERS 14:48
DX: T39.312A Poisoning by propionic acid derivatives, intentional self-harm, initial encounter (principal); T42.0X2A Poisoning by hydantoin derivatives, intentional self-harm, initial encounter; T43.022A Poisoning by tetracyclic antidepressants, intentional self-harm, initial encounter; M19.90 Unspecified osteoarthritis, unspecified site; K21.9 Gastro-esophageal reflux disease without esophagitis; I10 Essential (primary) hypertension; M06.9 Rheumatoid arthritis, unspecified; I48.91 Unspecified atrial fibrillation; F41.9 Anxiety disorder, unspecified; F31.9 Bipolar disorder, unspecified; F20.9 Schizophrenia, unspecified; F17.210 Nicotine dependence, cigarettes, uncomplicated; Z86.73 Personal history of transient ischemic attack (TIA), and cerebral infarction without residual deficits; Z79.899 Other long term (current) drug therapy
CPT/HCPCS: 36415; 80053; 80185; 80306; 80307; 81003; 81015; 82550; 84443; 85025; 93005

== ENCOUNTER 2019-03-09 08:20 | Emergency (ER) | payer OTHER ==
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
[2019-03-09 10:04] LABS: #Eosinphils 0.1 thou/uL (0.0-0.7); #Lymphocytes 0.8 thou/uL (1.20-3.40); #Monocytes 0.4 thou/uL (0.11-0.59); #Neutrophils 2.5 thou/uL (1.40-6.50); %Basophils 0.6 % (0.0-1.0); %Eosinophils 2.5 % (0.0-10.0); %Lymphocytes 21.8 % (21.0-51.0); %Neutrophils 66.1 % (42.0-75.0); Hemoglobin 13.3 g/dL (12.0-16.0); Mean Corpuscular HGB CONC 32.6 g/dL (32.0-36.0); Mean Corpuscular Hemoglobin 30.6 pg (27.0-31.0); Mean Corpuscular Volume 93.7 fL (78.0-98.0); Mean Platelet Volume 7.3 fL (7.4-10.4); Platelet Count 311 thou/uL (130-400); RBC Distribution Width 11.4 % (11.5-14.5); Red Blood Cell (RBC) Count 4.34 mill/uL (4.20-5.40); White Blood Cell (WBC) Count 3.8 thou/uL (4.8-10.8)
[2019-03-09 10:25] LABS: ALT (SGPT) 12 U/L (8-55); AST (SGOT) 21 U/L (5-34); Albumin 3.9 g/dL (3.5-5.0); Alkaline Phosphatase 102 U/L (40-110); Anion Gap 11 mmol/L (10-20); BUN (Urea Nitrogen) 11 mg/dL (9.8-20.1); Bilirubin, Total 0.4 mg/dL (0.2-1.2); Calc. Creatinine Clearance 0 mL/min (70-130); Calcium 9.1 mg/dL (7.8-10.44); Carbon Dioxide 27 mmol/L (22-29); Chloride 104 mmol/L (98-107); Estimated GFR-MDRD 73; Globulin 3.6 g/dL (2.4-3.5); Glucose 98 mg/dL (70-105); Potassium 4.2 mmol/L (3.5-5.1); Protein, Total 7.5 g/dL (6.0-8.3); Sodium 138 mmol/L (136-145)
[2019-03-09] MEDS ORDERED: Acetaminophen 500 MG TAB ONE ×2 (10:25→10:47)
[2019-03-09 11:43] LABS: Bilirubin Negative (Negative); Blood, Urine Negative (Negative); Clarity Clear (Clear); Glucose, Urine (Dipstick) Normal (Negative); Leukocyte Negative Leu/uL (Negative); Nitrite Negative (Negative); Protein, Urine (Dipstick) 20 mg/dL (Neg-Trace); Urobilinogen Normal mg/dL (Less than 2)
== END 2019-03-09 12:14 | disposition home or self-care (01) ==
LOC: ERS 08:20
DX: J18.9 Pneumonia, unspecified organism (principal); D72.819 Decreased white blood cell count, unspecified; F17.210 Nicotine dependence, cigarettes, uncomplicated; F41.9 Anxiety disorder, unspecified; F31.9 Bipolar disorder, unspecified; F20.9 Schizophrenia, unspecified; M19.90 Unspecified osteoarthritis, unspecified site; Z79.899 Other long term (current) drug therapy; Z79.1 Long term (current) use of non-steroidal anti-inflammatories (NSAID)
CPT/HCPCS: 36415; 71046; 80053; 81003; 85025; 87804; 96360

== ENCOUNTER 2019-03-31 15:26 | Observation (INO) | payer OTHER ==
[2019-03-31 16:25] LABS: #Basophils 0.1 thou/uL (0.0-0.2); #Eosinphils 0.1 thou/uL (0.0-0.7); #Lymphocytes 2.9 thou/uL (1.20-3.40); #Monocytes 0.5 thou/uL (0.11-0.59); #Neutrophils 2.4 thou/uL (1.40-6.50); %Basophils 1.6 % (0.0-1.0); %Monocytes 8.4 % (0.0-10.0); %Neutrophils 40.1 % (42.0-75.0); Mean Corpuscular HGB CONC 33.3 g/dL (32.0-36.0); Mean Corpuscular Hemoglobin 31.4 pg (27.0-31.0); Mean Corpuscular Volume 94.4 fL (78.0-98.0); Mean Platelet Volume 7.7 fL (7.4-10.4); Platelet Count 357 thou/uL (130-400); RBC Distribution Width 11.4 % (11.5-14.5); Red Blood Cell (RBC) Count 4.15 mill/uL (4.20-5.40); White Blood Cell (WBC) Count 5.9 thou/uL (4.8-10.8)
--- NOTE | 2019-03-31 16:31 | RAD ---
Chest one view HISTORY: Chest pain. COMPARISON: 03/09/2019. FINDINGS: Cardiac silhouette and pulmonary vasculature are unremarkable. Mediastinum is midline. Subt le parenchymal opacity at the right base partially obscures the lateral apex of the right hemidiaphragm. Left lung is clear. Metallic shrapnel of the left shoulder similar in appearance to th e prior study. IMPRESSION: Subtle opacity at the right base may represent infiltrate or atelectasis. Clinical correl ation regarding other signs and symptoms of right basilar pneumonitis is required. Please consider short-term radiographic follow-up with upright PA and lateral views of the chest in f ull inspiration.
[2019-03-31 16:45] LABS: ALT (SGPT) 21 U/L (8-55); AST (SGOT) 28 U/L (5-34); Albumin 4.2 g/dL (3.5-5.0); Alkaline Phosphatase 98 U/L (40-110); Anion Gap 12 mmol/L (10-20); BUN (Urea Nitrogen) 16 mg/dL (9.8-20.1); Bilirubin, Total 0.2 mg/dL (0.2-1.2); Calc. Creatinine Clearance 0 mL/min (70-130); Calcium 9.4 mg/dL (7.8-10.44); Carbon Dioxide 28 mmol/L (22-29); Chloride 101 mmol/L (98-107); Estimated GFR-MDRD 71; Globulin 3.9 g/dL (2.4-3.5); Glucose 73 mg/dL (70-105); Potassium 3.8 mmol/L (3.5-5.1); Protein, Total 8.1 g/dL (6.0-8.3); Sodium 137 mmol/L (136-145)
[2019-03-31] MEDS ORDERED: cefTRIAXone\\ROCEPHIN 1 GM VIAL ONE (17:13)
[2019-03-31] MEDS ORDERED: Aspirin Chewable 81 MG TAB ONE ×2 (17:13→17:14)
[2019-03-31] MEDS ORDERED: Azithromycin 500 MG VIAL ONE (17:13)
[2019-03-31] MEDS ORDERED: Ondansetron PF 4 MG/2 ML Vial ONE (20:25)
[2019-03-31] MEDS ORDERED: Ondansetron PF 4 MG/2 ML Vial IVP PRN ×2 (20:48→21:49)
[2019-03-31] MEDS ORDERED: Ondansetron ODT 4 MG TAB SL PRN (20:48)
[2019-03-31] MEDS ORDERED: Acetaminophen 325 MG TAB PO PRN ×2 (20:48→21:49)
[2019-03-31 20:52] VITALS: BMI 26.2
[2019-03-31] MEDS ORDERED: Ondansetron ODT 4 MG TAB PO PRN (21:49)
[2019-03-31] MEDS ORDERED: Senokot S 8.6-50 MG TAB PO PRN (21:49)
[2019-03-31] MEDS ORDERED: Guaifenesin DM 100-10/5 ML UDCUP PO PRN (21:49)
[2019-03-31] MEDS ORDERED: Acetaminophen 650 MG Suppository PR PRN (21:49)
[2019-03-31] MEDS ORDERED: Alendronate Sodium 70 mg Tablet PO SCH (22:00)
[2019-03-31 22:22] LABS: Troponin I Less than 0.010 ng/mL (< 0.028)
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
[2019-03-31 22:52] LABS: HIV (1/2) Antibody/Antigen Non-Reactive (NonReactive); HIV 1/2 INDEX 0.11 S/CO (<1.00)
[2019-04-01] MEDS: Famotidine 20 MG TAB PO SCH ×3 (00:35→10:13)
[2019-04-01 04:58] LABS: #Basophils 0.1 thou/uL (0.0-0.2); #Eosinphils 0.2 thou/uL (0.0-0.7); #Lymphocytes 2.5 thou/uL (1.20-3.40); #Monocytes 0.5 thou/uL (0.11-0.59); #Neutrophils 2.6 thou/uL (1.40-6.50); %Eosinophils 3.5 % (0.0-10.0); %Lymphocytes 42.5 % (21.0-51.0); %Monocytes 8.7 % (0.0-10.0); %Neutrophils 44.3 % (42.0-75.0); Hemoglobin 12.2 g/dL (12.0-16.0); Mean Corpuscular HGB CONC 32.6 g/dL (32.0-36.0); Mean Corpuscular Hemoglobin 30.8 pg (27.0-31.0); Mean Corpuscular Volume 94.3 fL (78.0-98.0); Mean Platelet Volume 7.5 fL (7.4-10.4); Platelet Count 302 thou/uL (130-400); RBC Distribution Width 11.5 % (11.5-14.5); Red Blood Cell (RBC) Count 3.98 mill/uL (4.20-5.40); White Blood Cell (WBC) Count 5.8 thou/uL (4.8-10.8)
[2019-04-01 05:10] LABS: Anion Gap 14 mmol/L (10-20); BUN (Urea Nitrogen) 14 mg/dL (9.8-20.1); Calc. Creatinine Clearance 91 mL/min (70-130); Calcium 8.4 mg/dL (7.8-10.44); Carbon Dioxide 21 mmol/L (22-29); Chloride 105 mmol/L (98-107); Estimated GFR-MDRD Greater than 90; Glucose 86 mg/dL (70-105); Sodium 136 mmol/L (136-145)
[2019-04-01] MEDS ORDERED: Enoxaparin Sodium 40 MG/0.4 ML SYRINGE SC SCH (09:00)
[2019-04-01] MEDS ORDERED: TRIAMTERENE 37.5 MG PO SCH (09:00)
[2019-04-01] MEDS ORDERED: Atorvastatin Calcium 20 MG TAB PO SCH (09:00)
[2019-04-01] MEDS ORDERED: PARoxetine 20 MG TAB PO SCH (09:00)
[2019-04-01] MEDS ORDERED: Loratadine 10 MG TAB PO SCH (09:00)
[2019-04-01] MEDS ORDERED: FLU VACC QS2019-20(6MOS UP)/PF 60 MCG/0.5 ML SYRINGE IM ONE (09:00)
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
[2019-04-01 16:14] VITALS: BP 126/60; TEMP 98.1
[2019-04-01] MEDS ORDERED: Mirtazapine 15 MG TAB PO SCH (21:00)
--- NOTE | 2019-04-02 05:18 | DIS ---
DATE OF ADMISSION: 03/31/2019 DATE OF DISCHARGE: 04/01/2019 DISCHARGE DIAGNOSES: 1. Chest pain, noncardiac. 2. Cocaine use. 3. Hypertension, stable. 4. Bipolar disorder. CONSULTATIONS: None. PERTINENT LABORATORY AND X-RAY FINDINGS: Basic metabolic profile within normal limits. Troponin I negative x3. CBC within normal limits. HIV 1 and 2 antigen and antibody nonreactive on 03/31/2019. Portable chest x-ray dated 04/01/2019 showed no acute cardiopulmonary process. 2D transthoracic echocardiogram dated 04/01/2019 showed ejection fraction of 55% to 60%, normal study. HOSPITAL COURSE: The patient was observed on the telemetry unit after initially presenting with atypical chest pain, undergoing serial cardiac biomarkers, which were negative x3. Telemetry monitoring showed sinus mechanism without evidence of acute arrhythmia or dysrhythmia. The patient underwent 2D transthoracic echocardiogram evaluation showing normal study with preserved ejection fraction of 55% to 60%. The patient's presentation consistent with musculoskeletal chest pain with recommendations for general supportive management. The patient was counseled regarding the use of tobacco products and in conjunction with cocaine. I have examined the patient at the time of discharge and discussed followup instructions. The patient overall clinically stable and ready for discharge on 04/01/2019. DISCHARGE MEDICATIONS: 1. Lipitor 20 mg p.o. daily. 2. Mirtazapine 30 mg p.o. at bedtime. 3. Paxil 30 mg p.o. daily. 4. Phenytoin 300 mg p.o. daily. 5. Seroquel 50 mg p.o. at 8 a.m. and 12 noon and 300 mg p.o. at bedtime. 6. Triamterene 37.5 mg p.o. daily. 7. Fosamax 70 mg p.o. q.7 days. FOLLOWUP: The patient to followup with her primary care provider, Dr. Correa within 7 days of discharge. CONDITION ON DISCHARGE: Stable. ACTIVITY: Ad-mady. DIET: Heart healthy. CODE STATUS: Full. DISPOSITION: To home, 04/01/2019. Job ID: [id number]
== END 2019-04-01 18:01 | disposition home or self-care (01) ==
LOC: ERS 15:26 → 2SW 20:34
PROVIDERS: ADMIT Emergency Medicine; ATTEND Emergency Medicine
DX: R07.89 Other chest pain (principal); R05 Cough; F14.10 Cocaine abuse, uncomplicated; I10 Essential (primary) hypertension; F32.9 Major depressive disorder, single episode, unspecified; F17.210 Nicotine dependence, cigarettes, uncomplicated; I48.91 Unspecified atrial fibrillation; I69.354 Hemiplegia and hemiparesis following cerebral infarction affecting left non-dominant side; K21.9 Gastro-esophageal reflux disease without esophagitis; M19.90 Unspecified osteoarthritis, unspecified site; F41.9 Anxiety disorder, unspecified; F20.9 Schizophrenia, unspecified; Z91.5 Personal history of self-harm; Z79.83 Long term (current) use of bisphosphonates; Z79.899 Other long term (current) drug therapy; Z88.0 Allergy status to penicillin; Z88.5 Allergy status to narcotic agent
CPT/HCPCS: 36415; 71045; 71046; 80048; 80053; 84484; 85025; 87389; 90471; 90686; 90732; 93005; 93306; 96365; 96372; 96375; G0008; G0009; G0378; J0456; J0696; J1650; J2405

== ENCOUNTER 2019-07-25 08:05 | Inpatient (IN) | payer OTHER ==
[2019-07-25] MEDS ORDERED: Ondansetron PF 4 MG/2 ML Vial ONE ×2 (08:47→09:28)
[2019-07-25 08:51] LABS: #Eosinphils 0.1 thou/uL (0.0-0.7); #Monocytes 0.4 thou/uL (0.11-0.59); %Basophils 0.5 % (0.0-1.0); %Eosinophils 1.4 % (0.0-10.0); %Lymphocytes 30.2 % (21.0-51.0); %Monocytes 5.7 % (0.0-10.0); %Neutrophils 62.2 % (42.0-75.0); Mean Corpuscular HGB CONC 33.8 g/dL (32.0-36.0); Mean Corpuscular Hemoglobin 31.7 pg (27.0-31.0); Mean Corpuscular Volume 93.8 fL (78.0-98.0); Mean Platelet Volume 7.2 fL (7.4-10.4); Platelet Count 350 thou/uL (130-400); RBC Distribution Width 11.2 % (11.5-14.5); Red Blood Cell (RBC) Count 4.42 mill/uL (4.20-5.40); White Blood Cell (WBC) Count 6.5 thou/uL (4.8-10.8)
[2019-07-25 09:19] LABS: ALT (SGPT) 24 U/L (8-55); AST (SGOT) 36 U/L (5-34); Acetaminophen Less than 6.0 mcg/mL (10.0-30.0); Albumin 4.4 g/dL (3.4-4.8); Alcohol Less than 10 mg/dL (Less than 10); Alkaline Phosphatase 102 U/L (40-110); Anion Gap 10 mmol/L (10-20); BUN (Urea Nitrogen) 14 mg/dL (9.8-20.1); Bilirubin, Total 0.2 mg/dL (0.2-1.2); Calc. Creatinine Clearance 0 mL/min (70-130); Calcium 9.1 mg/dL (7.8-10.44); Carbon Dioxide 30 mmol/L (23-31); Chloride 101 mmol/L (98-107); Estimated GFR-MDRD 61; Glucose 101 mg/dL (80-115); Lipase 17 U/L (8-78); Potassium 3.4 mmol/L (3.5-5.1); Protein, Total 8.4 g/dL (6.0-8.3); Salicylate Less than 8.0 mg/dL (15.0-30.0); Sodium 138 mmol/L (136-145)
[2019-07-25 10:33] LABS: Bilirubin Negative (Negative); Blood, Urine Negative (Negative); Clarity Clear (Clear); Glucose, Urine (Dipstick) Normal (Negative); Leukocyte Negative Leu/uL (Negative); Nitrite Negative (Negative); Protein, Urine (Dipstick) Negative (Neg-Trace); Urobilinogen Normal mg/dL (Less than 2)
[2019-07-25 10:49] LABS: Amphetamine Not Detected (NotDetected); Barbiturates Screen Detected (NotDetected); Benzodiazepine Screen Not Detected (NotDetected); Cocaine Metabolite Screen Detected (NotDetected); Medtox Control Line Valid? VALID (VALID); Medtox Reader # READER 1; Methadone Not Detected (NotDetected); Methamphetamine Not Detected (NotDetected); Opiate Screen Not Detected (NotDetected); Oxycodone Screen Not Detected (NotDetected); Phencyclidine (PCP) Not Detected (NotDetected); THC/Cannabinoid Screen Not Detected (NotDetected); Tricyclic Screen Not Detected (NotDetected)
--- NOTE | 2019-07-25 10:52 | RAD ---
CHEST 1 VIEW: HISTORY: Chest pain. COMPARISON: Radiograph 04/01/2019. FINDINGS: Radiopaque debris projects over the left hemithorax. There is a linear opacity in the right lung bas e, likely atelectasis. No pneumothorax. No effusion. No confluent airspace consolidation. IMPRESSION: Findings of right lower lobe atelectasis. No acute intrathoracic abnormality. POS: HOME
[2019-07-25 12:01] LABS: Alcohol Less than 10 mg/dL (Less than 10)
[2019-07-25 12:22] VITALS: BMI 25.1
[2019-07-25] MEDS ORDERED: Sodium Chloride 0.9% 1,000 ML IV SCH (12:35)
[2019-07-25] MEDS ORDERED: Ondansetron PF 4 MG/2 ML Vial IVP PRN ×2 (12:35→14:56)
[2019-07-25] MEDS ORDERED: Ondansetron ODT 4 MG TAB SL PRN (12:35)
[2019-07-25] MEDS ORDERED: hydrALAZINE 20 MG/ML VIAL SLOW IVP PRN (14:56)
[2019-07-25] MEDS ORDERED: Acetaminophen 500 MG TAB PO PRN (14:56)
[2019-07-25] MEDS ORDERED: Ondansetron ODT 4 MG TAB PO PRN (14:56)
[2019-07-25] MEDS: Sodium Chloride 0.9% 1,000 ML IV SCH (15:18)
[2019-07-25] MEDS ORDERED: Potassium Chloride 20 MEQ TAB PO SCH (15:30)
[2019-07-25] MEDS: Ibuprofen 800 MG TAB PO PRN (18:42)
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
[2019-07-25] MEDS ORDERED: Mirtazapine 15 MG TAB PO SCH (21:00)
[2019-07-25] MEDS: Famotidine 20 MG TAB PO SCH (21:01)
[2019-07-25] MEDS: Prazosin HCl 1 MG CAP PO SCH (21:03)
[2019-07-26] MEDS: Sodium Chloride 0.9% 1,000 ML IV SCH ×3 (02:47→21:32)
[2019-07-26 03:57] LABS: Eosinophils 1 % (0-10); Hemoglobin 11.6 g/dL (12.0-16.0); Lymphocytes 57 % (21-51); MDiff Complete? YES; Mean Corpuscular HGB CONC 33.2 g/dL (32.0-36.0); Mean Corpuscular Hemoglobin 31.8 pg (27.0-31.0); Mean Corpuscular Volume 95.9 fL (78.0-98.0); Mean Platelet Volume 7.3 fL (7.4-10.4); Monocytes 3 % (0-10); Neutrophil 39 % (42-75); Platelet Count 258 thou/uL (130-400); Platelet Morphology Comment Appears Adequate; RBC Distribution Width 11.1 % (11.5-14.5); Red Blood Cell (RBC) Count 3.65 mill/uL (4.20-5.40); White Blood Cell (WBC) Count 5.2 thou/uL (4.8-10.8)
[2019-07-26 04:19] LABS: ALT (SGPT) 18 U/L (8-55); AST (SGOT) 23 U/L (5-34); Albumin 3.1 g/dL (3.4-4.8); Alkaline Phosphatase 79 U/L (40-110); Anion Gap 10 mmol/L (10-20); BUN (Urea Nitrogen) 15 mg/dL (9.8-20.1); Bilirubin, Total Less than 0.2 mg/dL (0.2-1.2); Calc. Creatinine Clearance 79 mL/min (70-130); Calcium 7.7 mg/dL (7.8-10.44); Carbon Dioxide 22 mmol/L (23-31); Chloride 113 mmol/L (98-107); Estimated GFR-MDRD 87; Globulin 2.7 g/dL (2.4-3.5); Glucose 121 mg/dL (80-115); Potassium 4.1 mmol/L (3.5-5.1); Protein, Total 5.8 g/dL (6.0-8.3); Sodium 141 mmol/L (136-145)
[2019-07-26] MEDS: Mirtazapine 30 MG TAB PO SCH (08:09)
[2019-07-26] MEDS: Amlodipine 5 MG TAB PO SCH (08:09)
[2019-07-26] MEDS: Famotidine 20 MG TAB PO SCH ×2 (08:09→21:26)
[2019-07-26] MEDS: Fluticasone Propionate Nasal Spray 16 gm Bottle NASAL SCH (08:44)
[2019-07-26] MEDS: Bupropion 150 MG SR TAB PO SCH (08:44)
[2019-07-26] MEDS ORDERED: TRIAMTERENE 37.5 MG PO SCH (09:00)
[2019-07-26] MEDS: Ibuprofen 800 MG TAB PO PRN (11:49)
--- NOTE | 2019-07-26 18:38 | PDOC.HOSPP ---
- Subjective Encounter Date: 07/26/19 Subjective: Alert and oriented. No acute events overnight. - Objective Vital Signs & Weight: Vital Signs (12 hours) Temp Pulse Resp BP BP Pulse Ox 07/26/19 16:00 97.7 F 84 20 129/78 97 07/26/19 12:10 100 07/26/19 11:02 97.9 F 78 20 111/73 100 07/26/19 08:09 78 128/97 H 07/26/19 08:00 100 07/26/19 07:55 97.9 F 78 22 H 116/72 96 Weight Weight 154 lb Most Recent Monitor Data Heart Rate from ECG 83 NIBP 109/77 NIBP BP-Mean 87 Respiration from ECG 15 SpO2 100 I&O: 07/25/19 07/26/19 07/27/19 06:59 06:59 06:59 Intake Total 1820 Output Total 1800 Balance 20 Result Diagrams: 07/26/19 03:22 07/26/19 03:22 Hospitalist ROS - Medication Medications: Active Medications Generic Name Dose Route Start Last Admin Trade Name Freq PRN Reason Stop Dose Admin Amlodipine Besylate 5 mg 07/26/19 09:00 07/26/19 08:09 Norvasc PO 5 mg DAILY GABI Administration Bupropion HCl 150 mg 07/26/19 09:00 07/26/19 08:44 Wellbutrin Sr PO 150 mg DAILY GABI Administration Famotidine 20 mg 07/25/19 21:00 07/26/19 08:09 Pepcid PO 20 mg BID GABI Administration Fluticasone Propionate 0 gm 07/26/19 09:00 07/26/19 08:44 Flonase Nasal Victor NASAL 1 spr DAILY GABI Administration Sodium Chloride 1,000 mls @ 100 mls/hr 07/25/19 15:00 07/26/19 11:52 Normal Saline 0.9% IV 1,000 mls .Q10H GABI Administration Ibuprofen 800 mg 07/25/19 14:56 07/26/19 11:49 Motrin PO 800 mg TIDPRN PRN Administration Pain Mirtazapine 30 mg 07/26/19 09:00 07/26/19 08:09 Remeron PO 30 mg DAILY GABI Administration Prazosin HCl 1 mg 07/25/19 21:00 07/25/19 21:03 Minipress PO 1 mg HS GABI Administration Quetiapine Fumarate 50 mg 07/26/19 08:00 07/26/19 11:49 Seroquel PO 50 mg 0800,1200 GABI Administration Quetiapine Fumarate 100 mg 07/25/19 21:00 07/25/19 21:01 Seroquel PO 100 mg QPM GABI Administration - Exam General Appearance: awake alert ENT: normocephalic atraumatic Neck: supple Heart: RRR, no murmur, no gallops, no rubs Respiratory: CTAB, no wheezes, no rales, no ronchi Gastrointestinal: soft, non-tender, non-distended, normal bowel sounds Neurological: cranial nerve grossly intact, no focal deficits Hosp A/P (1) Suicidal ideation Code(s): R45.851 - SUICIDAL IDEATIONS Status: Acute (2) GERD (gastroesophageal reflux disease) Code(s): K21.9 - GASTRO-ESOPHAGEAL REFLUX DISEASE WITHOUT ESOPHAGITIS Status: Chronic (3) Hypertension, benign Code(s): I10 - ESSENTIAL (PRIMARY) HYPERTENSION Status: Chronic (4) Dilantin overdose Code(s): T42.0X1A - POISONING BY HYDANTOIN DERIVATIVES, ACCIDENTAL, INIT Status: Resolved - Plan Dilantin level appears to be therapeutic. No major side effects has been noted so far. We will re-start her Dilantin tomorrow and consult [facility].
[2019-07-26] MEDS: Prazosin HCl 1 MG CAP PO SCH (21:26)
[2019-07-27] MEDS: Sodium Chloride 0.9% 1,000 ML IV SCH (08:01)
[2019-07-27] MEDS: Mirtazapine 30 MG TAB PO SCH (08:23)
[2019-07-27] MEDS: Famotidine 20 MG TAB PO SCH (08:23)
[2019-07-27] MEDS: Amlodipine 5 MG TAB PO SCH (08:24)
[2019-07-27] MEDS ORDERED: Polyethylene Glycol 3350 17 GM Packet PO PRN (10:08)
--- NOTE | 2019-07-27 10:10 | PDOC.HOSPP ---
- Subjective Encounter Date: 07/27/19 Subjective: She is tolerating her diet. Complaining of constipation. - Objective Vital Signs & Weight: Vital Signs (12 hours) Temp Pulse Resp BP Pulse Ox 07/27/19 07:14 97.6 F 75 20 124/61 99 07/27/19 05:10 97.6 F 80 18 117/78 94 L 07/27/19 00:21 97.8 F 90 17 107/65 94 L Weight Weight 154 lb Most Recent Monitor Data Heart Rate from ECG 83 NIBP 109/77 NIBP BP-Mean 87 Respiration from ECG 15 SpO2 100 I&O: 07/26/19 07/27/19 07/28/19 06:59 06:59 06:59 Intake Total 1820 2039 Output Total 1800 Balance 2039 Result Diagrams: 07/26/19 03:22 07/26/19 03:22 Additional Labs: Accuchecks 07/26/19 21:40 POC Glucose 208 H Hospitalist ROS - Medication Medications: Active Medications Generic Name Dose Route Start Last Admin Trade Name Freq PRN Reason Stop Dose Admin Amlodipine Besylate 5 mg 07/26/19 09:00 07/27/19 08:24 Norvasc PO 5 mg DAILY GABI Administration Bupropion HCl 150 mg 07/26/19 09:00 07/26/19 08:44 Wellbutrin Sr PO 150 mg DAILY GABI Administration Famotidine 20 mg 07/25/19 21:00 07/27/19 08:23 Pepcid PO 20 mg BID GABI Administration Fluticasone Propionate 0 gm 07/26/19 09:00 07/26/19 08:44 Flonase Nasal [facility] NASAL 1 spr DAILY GABI Administration Ibuprofen 800 mg 07/25/19 14:56 07/26/19 11:49 Motrin PO 800 mg TIDPRN PRN Administration Pain Mirtazapine 30 mg 07/26/19 09:00 07/27/19 08:23 Remeron PO 30 mg DAILY GABI Administration Prazosin HCl 1 mg 07/25/19 21:00 07/26/19 21:26 Minipress PO 1 mg HS GABI Administration Quetiapine Fumarate 50 mg 07/26/19 08:00 07/27/19 08:23 Seroquel PO 50 mg 0800,1200 GABI Administration Quetiapine Fumarate 100 mg 07/25/19 21:00 07/26/19 21:26 Seroquel PO 100 mg QPM GABI Administration - Exam General Appearance: awake alert ENT: normocephalic atraumatic Neck: supple Heart: RRR Respiratory: CTAB Gastrointestinal: soft, non-tender, non-distended, normal bowel sounds Hosp A/P (1) Suicidal ideation Code(s): R45.851 - SUICIDAL IDEATIONS Status: Acute (2) GERD (gastroesophageal reflux disease) Code(s): K21.9 - GASTRO-ESOPHAGEAL REFLUX DISEASE WITHOUT ESOPHAGITIS Status: Chronic (3) Hypertension, benign Code(s): I10 - ESSENTIAL (PRIMARY) HYPERTENSION Status: Chronic (4) Dilantin overdose Code(s): T42.0X1A - POISONING BY HYDANTOIN DERIVATIVES, ACCIDENTAL, INIT Status: Resolved - Plan Dilantin level appears to be therapeutic. No major side effects has been noted so far. Restart Dilantin. MiraLAX for constipation. Consult [facility].
[2019-07-27] MEDS: Bupropion 150 MG SR TAB PO SCH (10:22)
[2019-07-27] MEDS: Fluticasone Propionate Nasal Spray 16 gm Bottle NASAL SCH (10:22)
[2019-07-27] MEDS ORDERED: traMADol HCl 50 MG TAB PO PRN (12:01)
[2019-07-27] MEDS ORDERED: Dextrose 50% Abboject 50 ML SYRINGE SLOW IVP PRN (12:02)
[2019-07-27] MEDS ORDERED: Dextrose 5% in Water 1,000 ML IV PRN (12:02)
[2019-07-27] MEDS ORDERED: HumaLOG 300 UNITS/3 ML VIAL SC PRN (12:02)
[2019-07-27 14:47] LABS: Hemoglobin A1c 5.4 % (4.0-6.0)
[2019-07-27 16:56] VITALS: BP 138/67; TEMP 97.5
--- NOTE | 2019-07-27 20:39 | DIS ---
DATE OF ADMISSION: 07/25/2019 DATE OF DISCHARGE: 07/27/2019 DISCHARGE DIAGNOSES: 1. Suicidal attempt by drug overdose. 2. Overdose on Dilantin. 3. Schizoaffective disorder. 4. Seizure disorder. 5. Hypertension. DISCHARGE MEDICATIONS: 1. Amlodipine 5 mg orally daily. 2. Atorvastatin 20 mg orally daily. 3. Bupropion 150 mg orally daily. 4. Cetirizine 10 mg orally daily as needed for allergy. 5. Fluticasone nasal spray one spray each naris daily. 6. Ibuprofen 800 mg orally t.i.d. as needed for pain. 7. Mirtazapine 30 mg orally nightly and 30 mg orally daily. 8. Dilantin 300 mg orally daily. 9. Prazosin 1 mg orally nightly. 10. Seroquel 100 mg orally nightly and 50 mg orally at 8:00 a.m. and 12:00 p.m. 11. Triamterene 37.5 mg orally daily. HISTORY OF PRESENT ILLNESS AND HOSPITAL COURSE: The patient is a 59-year-old female with past medical history of chronic cocaine abuse, epilepsy, schizoaffective disorder, hypertension, hypothyroid, arthritis, and atrial fibrillation, who presented to the hospital complaining of cough and chest pain. The patient reported that she took two handful of her home Dilantin. She also reported some nausea and diarrhea. The patient was admitted to the intensive care unit and she was monitored for 24 hours without any signs of toxicity. Her Dilantin level was trended and remained within the therapeutic range. Her urine drug screen was also positive for barbiturates and cocaine. The patient was transferred to the medical floor where her stay was unremarkable. Dilantin will be initiated on the day of discharge. Job ID: [id number]
== END 2019-07-27 17:25 | DRG 918 ==
LOC: ERS 08:05 → IMCU/EMU 10:34 → T4-B 07-26 11:36
PROVIDERS: ADMIT Family Medicine; ATTEND Family Medicine
DX: T42.0X2A Poisoning by hydantoin derivatives, intentional self-harm, initial encounter (principal); F25.9 Schizoaffective disorder, unspecified; G40.909 Epilepsy, unspecified, not intractable, without status epilepticus; I10 Essential (primary) hypertension; F14.10 Cocaine abuse, uncomplicated; E03.9 Hypothyroidism, unspecified; M19.90 Unspecified osteoarthritis, unspecified site; I48.91 Unspecified atrial fibrillation; K21.9 Gastro-esophageal reflux disease without esophagitis; F41.9 Anxiety disorder, unspecified; F31.9 Bipolar disorder, unspecified; F17.210 Nicotine dependence, cigarettes, uncomplicated; M06.9 Rheumatoid arthritis, unspecified; M24.50 Contracture, unspecified joint; E87.6 Hypokalemia; R11.2 Nausea with vomiting, unspecified; R07.89 Other chest pain; K59.00 Constipation, unspecified; Z90.710 Acquired absence of both cervix and uterus; I69.398 Other sequelae of cerebral infarction; Z79.899 Other long term (current) drug therapy; Z88.6 Allergy status to analgesic agent; Z88.0 Allergy status to penicillin
CPT/HCPCS: 36415; 36416; 71045; 80053; 80185; 80306; 80307; 81003; 83036; 83690; 83880; 84484; 85007; 85025; 85027; 93005; 96361; 96374; 96376; J2405

== ENCOUNTER 2020-06-27 10:19 | Observation (INO) | payer OTHER ==
[2020-06-27 10:45] LABS: #Basophils 0.1 thou/uL (0.0-0.2); #Eosinphils 0.1 thou/uL (0.0-0.7); #Lymphocytes 1.6 thou/uL (1.20-3.40); #Monocytes 0.5 thou/uL (0.11-0.59); #Neutrophils 3.4 thou/uL (1.40-6.50); %Basophils 1.4 % (0.0-1.0); %Eosinophils 1.4 % (0.0-10.0); %Lymphocytes 27.8 % (21.0-51.0); %Monocytes 8.9 % (0.0-10.0); %Neutrophils 60.5 % (42.0-75.0); Hemoglobin 12.2 g/dL (12.0-16.0); Mean Corpuscular HGB CONC 33.5 g/dL (32.0-36.0); Mean Corpuscular Volume 95.6 fL (78.0-98.0); Mean Platelet Volume 6.6 fL (7.4-10.4); Platelet Count 333 thou/uL (130-400); RBC Distribution Width 11.6 % (11.5-14.5); White Blood Cell (WBC) Count 5.6 thou/uL (4.8-10.8)
[2020-06-27 11:05] LABS: ALT (SGPT) 17 U/L (8-55); AST (SGOT) 21 U/L (5-34); Albumin 3.7 g/dL (3.4-4.8); Alkaline Phosphatase 93 U/L (40-110); Anion Gap 12 mmol/L (10-20); BUN (Urea Nitrogen) 16 mg/dL (9.8-20.1); Bilirubin, Total 0.3 mg/dL (0.2-1.2); Calc. Creatinine Clearance 0 mL/min (70-130); Calcium 9.1 mg/dL (7.8-10.44); Carbon Dioxide 29 mmol/L (23-31); Chloride 106 mmol/L (98-107); Glucose 76 mg/dL (80-115); Potassium 3.8 mmol/L (3.5-5.1); Protein, Total 6.7 g/dL (5.8-8.1); Sodium 143 mmol/L (136-145)
[2020-06-27] MEDS ORDERED: Aspirin Chewable 81 MG TAB ONE (13:05)
[2020-06-27] MEDS ORDERED: Ondansetron ODT 4 MG TAB PO PRN (13:43)
[2020-06-27] MEDS ORDERED: Acetaminophen 325 MG TAB PO PRN (13:43)
[2020-06-27] MEDS ORDERED: Ondansetron PF 4 MG/2 ML Vial IVP PRN (13:43)
[2020-06-27 14:02] LABS: Bacteria/HPF None Seen HPF (None Seen); Bilirubin Negative (Negative); Blood, Urine Negative (Negative); Clarity Extra Turbid (Clear); Glucose, Urine (Dipstick) Normal (Negative); Ketone, Urine Negative (Negative); Leukocyte 25 Leu/uL (Negative); Nitrite Negative (Negative); Protein, Urine (Dipstick) Negative (Neg-Trace); RBC/HPF 0-3 HPF (0-3); Specific Gravity, Urine 1.019 (1.002-1.036); Squamous Epithelial 0-3 HPF (0-3); Urobilinogen Normal mg/dL (Less than 2)
[2020-06-27 14:07] LABS: Amphetamine Not Detected (NotDetected); Barbiturates Screen Detected (NotDetected); Benzodiazepine Screen Not Detected (NotDetected); Cocaine Metabolite Screen Detected (NotDetected); Medtox Control Line Valid? VALID (VALID); Medtox Reader # READER 4; Methadone Not Detected (NotDetected); Methamphetamine Not Detected (NotDetected); Opiate Screen Not Detected (NotDetected); Oxycodone Screen Not Detected (NotDetected); Phencyclidine (PCP) Not Detected (NotDetected); THC/Cannabinoid Screen Not Detected (NotDetected); Tricyclic Screen Not Detected (NotDetected)
[2020-06-27 17:54] VITALS: BMI 23.3
[2020-06-27] MEDS: Loratadine 10 MG TAB PO SCH (18:09)
[2020-06-27] MEDS: Amlodipine 5 MG TAB PO SCH (18:09)
[2020-06-27] MEDS: Fluticasone Propionate Nasal Spray 16 gm Bottle NASAL SCH (18:09)
[2020-06-27] MEDS: Mirtazapine 30 MG TAB PO SCH (18:10)
[2020-06-27] MEDS ORDERED: Atorvastatin Calcium 20 MG TAB PO SCH (21:00)
[2020-06-27] MEDS: Topiramate 25 MG TAB PO SCH (22:30)
[2020-06-27 23:57] LABS: SARS-CoV-2 NAA Rapid Test Not Detected (NotDetected)
[2020-06-28 07:17] LABS: ALT (SGPT) 13 U/L (8-55); AST (SGOT) 16 U/L (5-34); Albumin 3.1 g/dL (3.4-4.8); Alkaline Phosphatase 76 U/L (40-110); Anion Gap 10 mmol/L (10-20); BUN (Urea Nitrogen) 14 mg/dL (9.8-20.1); Bilirubin, Total 0.3 mg/dL (0.2-1.2); Calc. Creatinine Clearance 70 mL/min (70-130); Calcium 8.2 mg/dL (7.8-10.44); Carbon Dioxide 25 mmol/L (23-31); Chloride 109 mmol/L (98-107); Globulin 2.9 g/dL (2.4-3.5); Glucose 83 mg/dL (80-115); Potassium 3.9 mmol/L (3.5-5.1); Sodium 140 mmol/L (136-145)
[2020-06-28] MEDS ORDERED: Triamterene/Hydrochlorothiazide 37.5 mg/25 mg Tablet PO SCH (09:00)
[2020-06-28] MEDS ORDERED: Enoxaparin Sodium 40 MG/0.4 ML SYRINGE SC SCH (09:00)
[2020-06-28] MEDS: Loratadine 10 MG TAB PO SCH (10:17)
[2020-06-28] MEDS: Amlodipine 5 MG TAB PO SCH (10:17)
[2020-06-28] MEDS: Mirtazapine 30 MG TAB PO SCH (10:18)
[2020-06-28] MEDS: Fluticasone Propionate Nasal Spray 16 gm Bottle NASAL SCH (10:19)
[2020-06-28] MEDS: Topiramate 25 MG TAB PO SCH (10:20)
[2020-06-28] MEDS ORDERED: Meclizine HCl 25 MG TAB PO PRN (14:48)
[2020-06-28 15:19] VITALS: TEMP 98.3
[2020-06-28 21:02] VITALS: BP 157/75
== END 2020-06-28 18:30 | disposition home or self-care (01) ==
LOC: ERS 10:19 → 2SE 13:10
PROVIDERS: ADMIT Family Medicine; ATTEND Family Medicine
DX: R53.1 Weakness (principal); R42 Dizziness and giddiness; R20.2 Paresthesia of skin; F14.10 Cocaine abuse, uncomplicated; F17.210 Nicotine dependence, cigarettes, uncomplicated; I10 Essential (primary) hypertension; K21.9 Gastro-esophageal reflux disease without esophagitis; G40.309 Generalized idiopathic epilepsy and epileptic syndromes, not intractable, without status epilepticus; G89.4 Chronic pain syndrome; Z86.73 Personal history of transient ischemic attack (TIA), and cerebral infarction without residual deficits; Z79.82 Long term (current) use of aspirin; Z79.899 Other long term (current) drug therapy; Z88.0 Allergy status to penicillin; Z88.6 Allergy status to analgesic agent; Z20.822 Contact with and (suspected) exposure to COVID-19
CPT/HCPCS: 36415; 36416; 70450; 70551; 80053; 80185; 80306; 81003; 81015; 84443; 84484; 85025; 93005; 94640; 96372; G0378; J1650; J7620; U0002

== ENCOUNTER 2021-03-26 20:56 | Emergency (ER) | payer OTHER ==
[2021-03-26] MEDS ORDERED: Lidocaine Viscous Sol 2% 15 ml UD Cup ONE (21:17)
[2021-03-26] MEDS ORDERED: Mag-Al 1200 mg/1200 mg/30 ML UDCUP ONE (21:17)
[2021-03-26 21:41] LABS: #Eosinphils 0.1 thou/uL (0.0-0.7); #Lymphocytes 2.3 thou/uL (1.20-3.40); #Monocytes 0.4 thou/uL (0.11-0.59); #Neutrophils 2.8 thou/uL (1.40-6.50); %Basophils 0.7 % (0.0-1.0); %Eosinophils 2.3 % (0.0-10.0); %Lymphocytes 41.2 % (21.0-51.0); %Monocytes 6.2 % (0.0-10.0); %Neutrophils 49.6 % (42.0-75.0); Hemoglobin 13.2 g/dL (12.0-16.0); Mean Corpuscular HGB CONC 33.8 g/dL (32.0-36.0); Mean Corpuscular Hemoglobin 33.3 pg (27.0-31.0); Mean Corpuscular Volume 98.5 fL (78.0-98.0); Mean Platelet Volume 6.5 fL (7.4-10.4); Platelet Count 362 thou/uL (130-400); Red Blood Cell (RBC) Count 3.96 mill/uL (4.20-5.40); White Blood Cell (WBC) Count 5.7 thou/uL (4.8-10.8)
[2021-03-26 22:03] LABS: ALT (SGPT) 11 U/L (8-55); AST (SGOT) 16 U/L (5-34); Albumin 3.6 g/dL (3.4-4.8); Alkaline Phosphatase 124 U/L (40-110); Anion Gap 10 mmol/L (10-20); BUN (Urea Nitrogen) 13 mg/dL (9.8-20.1); Bilirubin, Total Less than 0.2 mg/dL (0.2-1.2); Calc. Creatinine Clearance 0 mL/min (70-130); Calcium 8.9 mg/dL (7.8-10.44); Carbon Dioxide 30 mmol/L (23-31); Chloride 106 mmol/L (98-107); Globulin 3.1 g/dL (2.4-3.5); Glucose 98 mg/dL (80-115); Lipase 37 U/L (8-78); Protein, Total 6.7 g/dL (5.8-8.1); Sodium 142 mmol/L (136-145)
[2021-03-26] MEDS ORDERED: Ondansetron PF 4 MG/2 ML Vial ONE (22:03)
[2021-03-27 01:35] LABS: Troponin I Less than 0.010 ng/mL (< 0.028)
== END 2021-03-27 01:55 | disposition home or self-care (01) ==
LOC: ERS 20:56
DX: R07.9 Chest pain, unspecified (principal); K21.9 Gastro-esophageal reflux disease without esophagitis; I10 Essential (primary) hypertension; I48.91 Unspecified atrial fibrillation; F17.210 Nicotine dependence, cigarettes, uncomplicated
CPT/HCPCS: 36415; 71045; 80053; 83690; 84484; 85025; 93005; 96374; J2405

== ENCOUNTER 2021-06-08 17:05 | Emergency (ER) | payer OTHER ==
[2021-06-08 18:00] LABS: #Basophils 0.1 thou/uL (0.0-0.2); #Eosinphils 0.1 thou/uL (0.0-0.7); #Lymphocytes 2.6 thou/uL (1.20-3.40); #Monocytes 0.5 thou/uL (0.11-0.59); #Neutrophils 3.4 thou/uL (1.40-6.50); %Basophils 1.4 % (0.0-1.0); %Eosinophils 1.5 % (0.0-10.0); %Lymphocytes 38.8 % (21.0-51.0); %Monocytes 7.8 % (0.0-10.0); %Neutrophils 50.6 % (42.0-75.0); Hemoglobin 13.7 g/dL (12.0-16.0); Mean Corpuscular HGB CONC 33.2 g/dL (32.0-36.0); Mean Corpuscular Hemoglobin 32.4 pg (27.0-31.0); Mean Corpuscular Volume 97.6 fL (78.0-98.0); Mean Platelet Volume 6.3 fL (7.4-10.4); Platelet Count 437 thou/uL (130-400); RBC Distribution Width 11.3 % (11.5-14.5); Red Blood Cell (RBC) Count 4.24 mill/uL (4.20-5.40); White Blood Cell (WBC) Count 6.7 thou/uL (4.8-10.8)
[2021-06-08] MEDS ORDERED: Morphine 4 MG/ML VIAL ONE (18:07)
[2021-06-08 18:22] LABS: ALT (SGPT) 12 U/L (8-55); AST (SGOT) 19 U/L (5-34); Alkaline Phosphatase 133 U/L (40-110); Anion Gap 11 mmol/L (10-20); BUN (Urea Nitrogen) 13 mg/dL (9.8-20.1); Bilirubin, Total 0.2 mg/dL (0.2-1.2); Calc. Creatinine Clearance 0 mL/min (70-130); Calcium 9.2 mg/dL (7.8-10.44); Carbon Dioxide 30 mmol/L (23-31); Chloride 101 mmol/L (98-107); Globulin 3.3 g/dL (2.4-3.5); Glucose 94 mg/dL (80-115); Potassium 4.4 mmol/L (3.5-5.1); Protein, Total 7.3 g/dL (5.8-8.1); Sodium 138 mmol/L (136-145)
== END 2021-06-08 19:40 | disposition home or self-care (01) ==
LOC: ERS 17:05
DX: T81.89XA Other complications of procedures, not elsewhere classified, initial encounter (principal); I10 Essential (primary) hypertension; K21.9 Gastro-esophageal reflux disease without esophagitis; I48.91 Unspecified atrial fibrillation; M19.90 Unspecified osteoarthritis, unspecified site; F17.210 Nicotine dependence, cigarettes, uncomplicated; G40.909 Epilepsy, unspecified, not intractable, without status epilepticus; Z86.73 Personal history of transient ischemic attack (TIA), and cerebral infarction without residual deficits; Z79.899 Other long term (current) drug therapy
CPT/HCPCS: 36415; 80053; 85025; 86140; 87040; 96372; J2270

== ENCOUNTER 2021-07-11 00:53 | Observation (INO) | payer OTHER ==
[2021-07-11 01:46] LABS: Mean Corpuscular HGB CONC 33.7 g/dL (32.0-36.0); Mean Corpuscular Hemoglobin 33.1 pg (27.0-31.0); Mean Corpuscular Volume 98.4 fL (78.0-98.0); Mean Platelet Volume 6.7 fL (7.4-10.4); Platelet Count 242 thou/uL (130-400); RBC Distribution Width 11.3 % (11.5-14.5); Red Blood Cell (RBC) Count 3.92 mill/uL (4.20-5.40)
[2021-07-11 02:05] LABS: ALT (SGPT) 13 U/L (8-55); AST (SGOT) 19 U/L (5-34); Albumin 3.3 g/dL (3.4-4.8); Alkaline Phosphatase 106 U/L (40-110); Anion Gap 12 mmol/L (10-20); BUN (Urea Nitrogen) 13 mg/dL (9.8-20.1); Bilirubin, Total 0.2 mg/dL (0.2-1.2); Calc. Creatinine Clearance 0 mL/min (70-130); Calcium 8.8 mg/dL (7.8-10.44); Carbon Dioxide 22 mmol/L (23-31); Chloride 106 mmol/L (98-107); Globulin 3.2 g/dL (2.4-3.5); Glucose 125 mg/dL (80-115); Potassium 3.4 mmol/L (3.5-5.1); Protein, Total 6.5 g/dL (5.8-8.1); Sodium 137 mmol/L (136-145)
[2021-07-11 02:19] LABS: Eosinophils 1 % (0-10); Lymphocytes 21 % (21-51); MDiff Complete? YES; Monocytes 16 % (0-10); Neutrophil 61 % (42-75); Platelet Morphology Comment Appears Adequate; RBC Morphology Normal; Reactive Lymphocytes 1 % (0-10)
[2021-07-11] MEDS ORDERED: Ondansetron PF 4 MG/2 ML Vial IVP PRN (03:30)
[2021-07-11] MEDS ORDERED: Ondansetron ODT 4 MG TAB SL PRN (03:30)
[2021-07-11] MEDS ORDERED: Acetaminophen 325 MG TAB PO PRN (03:52)
[2021-07-11] MEDS ORDERED: Senokot S 8.6-50 MG TAB PO PRN (03:52)
[2021-07-11 04:43] LABS: Cardiac Risk 3.1 (Less than 4.5)
[2021-07-11] MEDS ORDERED: Nitroglycerin 0.4 MG TAB (25 Tab Bottle) SL PRN (04:43)
[2021-07-11] MEDS ORDERED: Electrolyte Replacement Protocol 1 EACH FS ONE (05:02)
[2021-07-11] MEDS ORDERED: Electrolyte Replacement Protocol FS PRN (05:15)
[2021-07-11 06:08] VITALS: BMI 24.8
[2021-07-11 06:38] LABS: Amphetamine Not Detected (NotDetected); Barbiturates Screen Detected (NotDetected); Benzodiazepine Screen Not Detected (NotDetected); Cocaine Metabolite Screen Not Detected (NotDetected); Methadone Not Detected (NotDetected); Methamphetamine Not Detected (NotDetected); Opiate Screen Detected (NotDetected); Oxycodone Screen Not Detected (NotDetected); Phencyclidine (PCP) Not Detected (NotDetected); THC/Cannabinoid Screen Not Detected (NotDetected); Tricyclic Screen Detected (NotDetected)
[2021-07-11] MEDS ORDERED: Potassium Chloride 20 MEQ TAB PO SCH ×2 (08:00)
[2021-07-11 08:37] LABS: Phosphorus 3.4 mg/dL (2.3-4.7)
[2021-07-11 08:39] LABS: Magnesium 1.7 mg/dL (1.6-2.6)
[2021-07-11 08:40] LABS: Troponin I Less than 0.010 ng/mL (< 0.028)
[2021-07-11] MEDS ORDERED: Famotidine 20 MG TAB PO SCH (09:00)
[2021-07-11] MEDS ORDERED: Enoxaparin Sodium 40 MG/0.4 ML SYRINGE SC SCH (09:00)
[2021-07-11] MEDS ORDERED: Magnesium 2 GM/50 ML(in water) 2 GM in Premix Bag 1 BAG IVPB SCH (11:00)
[2021-07-11] MEDS ORDERED: Regadenoson 0.4 MG/5 ML SYRINGE ONE (13:34)
[2021-07-11 14:55] LABS: Potassium 3.9 mmol/L (3.5-5.1)
[2021-07-11 15:05] LABS: Troponin I Less than 0.010 ng/mL (< 0.028)
[2021-07-11 15:29] VITALS: BP 139/62; TEMP 97.6
[2021-07-11 17:11] LABS: SARS-CoV-2 PCR by NAA Not Detected (NotDetected)
== END 2021-07-11 16:03 | disposition home or self-care (01) ==
LOC: ERS 00:53 → 2SW 03:09
PROVIDERS: ADMIT Family Medicine; ATTEND Family Medicine
DX: R07.89 Other chest pain (principal); I10 Essential (primary) hypertension; G40.909 Epilepsy, unspecified, not intractable, without status epilepticus; E87.6 Hypokalemia; K21.9 Gastro-esophageal reflux disease without esophagitis; F17.210 Nicotine dependence, cigarettes, uncomplicated; M79.89 Other specified soft tissue disorders; R09.02 Hypoxemia; E78.5 Hyperlipidemia, unspecified; I69.334 Monoplegia of upper limb following cerebral infarction affecting left non-dominant side; M19.90 Unspecified osteoarthritis, unspecified site; M06.9 Rheumatoid arthritis, unspecified; I48.91 Unspecified atrial fibrillation; M19.071 Primary osteoarthritis, right ankle and foot; Z79.82 Long term (current) use of aspirin; Z79.899 Other long term (current) drug therapy; Z88.6 Allergy status to analgesic agent; Z20.822 Contact with and (suspected) exposure to COVID-19
CPT/HCPCS: 36415; 71045; 78452; 80053; 80061; 80306; 83735; 84100; 84443; 84484; 85025; 93005; 93017; 96374; A9500; G0378; J2785; J3475; U0003; U0005

== ENCOUNTER 2021-11-22 15:22 | Emergency (ER) | payer OTHER ==
[2021-11-22 16:16] LABS: #Eosinphils 0.1 thou/uL (0.0-0.7); #Lymphocytes 2.3 thou/uL (1.20-3.40); #Monocytes 0.4 thou/uL (0.11-0.59); #Neutrophils 2.8 thou/uL (1.40-6.50); %Basophils 0.7 % (0.0-1.0); %Eosinophils 1.8 % (0.0-10.0); %Lymphocytes 40.8 % (21.0-51.0); %Monocytes 7.5 % (0.0-10.0); %Neutrophils 49.1 % (42.0-75.0); Hemoglobin 13.3 g/dL (12.0-16.0); Mean Corpuscular HGB CONC 33.7 g/dL (32.0-36.0); Mean Corpuscular Hemoglobin 32.6 pg (27.0-31.0); Mean Corpuscular Volume 96.6 fL (78.0-98.0); Platelet Count 339 thou/uL (130-400); RBC Distribution Width 11.6 % (11.5-14.5); Red Blood Cell (RBC) Count 4.09 mill/uL (4.20-5.40); White Blood Cell (WBC) Count 5.7 thou/uL (4.8-10.8)
[2021-11-22] MEDS ORDERED: Mag-Al 1200 mg/1200 mg/30 ML UDCUP ONE (16:38)
[2021-11-22] MEDS ORDERED: Lidocaine Viscous Sol 2% 15 ml UD Cup ONE (16:38)
[2021-11-22 16:48] LABS: Bilirubin Negative (Negative); Blood, Urine Negative (Negative); Clarity Clear (Clear); Glucose, Urine (Dipstick) Normal (Negative); Ketone, Urine Negative (Negative); Leukocyte Negative Leu/uL (Negative); Nitrite Negative (Negative); Protein, Urine (Dipstick) Negative (Neg-Trace); Specific Gravity, Urine 1.016 (1.002-1.036); Urobilinogen Normal mg/dL (Less than 2)
[2021-11-22 16:49] LABS: Acetaminophen Less than 10.0 mcg/mL (10.0-30.0); Alcohol Less than 10 mg/dL (Less than 10); Salicylate Less than 8.0 mg/dL (15.0-30.0)
[2021-11-22 16:53] LABS: ALT (SGPT) 17 U/L (8-55); AST (SGOT) 25 U/L (5-34); Albumin 3.9 g/dL (3.4-4.8); Alkaline Phosphatase 144 U/L (40-110); Anion Gap 12 mmol/L (10-20); BUN (Urea Nitrogen) 13 mg/dL (9.8-20.1); Bilirubin, Total 0.2 mg/dL (0.2-1.2); Calc. Creatinine Clearance 0 mL/min (70-130); Calcium 8.8 mg/dL (7.8-10.44); Carbon Dioxide 26 mmol/L (23-31); Chloride 103 mmol/L (98-107); Estimated GFR 58; Globulin 3.3 g/dL (2.4-3.5); Glucose 91 mg/dL (80-115); Lipase 41 U/L (8-78); Potassium 3.8 mmol/L (3.5-5.1); Protein, Total 7.2 g/dL (5.8-8.1); Sodium 137 mmol/L (136-145)
[2021-11-22 16:59] LABS: Amphetamine Not Detected (NotDetected); Barbiturates Screen Detected (NotDetected); Benzodiazepine Screen Not Detected (NotDetected); Cocaine Metabolite Screen Not Detected (NotDetected); Methadone Not Detected (NotDetected); Methamphetamine Not Detected (NotDetected); Opiate Screen Not Detected (NotDetected); Oxycodone Screen Not Detected (NotDetected); Phencyclidine (PCP) Not Detected (NotDetected); THC/Cannabinoid Screen Not Detected (NotDetected); Tricyclic Screen Not Detected (NotDetected)
== END 2021-11-22 18:43 | disposition home or self-care (01) ==
LOC: ERS 15:22
DX: R10.13 Epigastric pain (principal); I10 Essential (primary) hypertension; I48.91 Unspecified atrial fibrillation; F17.210 Nicotine dependence, cigarettes, uncomplicated; Z79.899 Other long term (current) drug therapy
CPT/HCPCS: 70450; 71045; 80053; 80306; 80307; 81003; 83690; 84443; 84484; 85025; 93005; 96360; 96361

== ENCOUNTER 2023-03-22 02:15 | Emergency (ER) | payer OTHER ==
[2023-03-22 03:25] LABS: #Eosinphils 0.1 thou/uL (0.0-0.7); #Monocytes 0.4 thou/uL (0.11-0.59); #Neutrophils 3.1 thou/uL (1.40-6.50); %Basophils 0.6 % (0.0-1.0); %Lymphocytes 31.4 % (21.0-51.0); %Monocytes 7.6 % (0.0-10.0); Hematocrit 40.9 % (36.0-47.0); Hemoglobin 13.8 g/dL (12.0-16.0); Mean Corpuscular HGB CONC 33.7 g/dL (32.0-36.0); Mean Corpuscular Hemoglobin 31.7 pg (27.0-31.0); Mean Corpuscular Volume 93.8 fl (78.0-98.0); Mean Platelet Volume 9.7 fL (7.4-10.4); Platelet Count 326 10x3/uL (130-400); RBC Distribution Width 12.1 % (11.5-14.5); Red Blood Cell (RBC) Count 4.36 mill/uL (4.20-5.40); White Blood Cell (WBC) Count 5.4 10x3/uL (4.8-10.8)
[2023-03-22 03:51] LABS: Troponin I Less than 0.010 ng/mL (< 0.028)
[2023-03-22 03:53] LABS: ALT (SGPT) 16 U/L (8-55); AST (SGOT) 24 U/L (5-34); Albumin 3.7 g/dL (3.4-4.8); Alkaline Phosphatase 130 U/L (40-110); Anion Gap 10 mmol/L (10-20); BUN (Urea Nitrogen) 14 mg/dL (9.8-20.1); Bilirubin, Total 0.3 mg/dL (0.2-1.2); Calc. Creatinine Clearance 0 mL/min (70-130); Calcium 9.2 mg/dL (7.8-10.44); Carbon Dioxide 28 mmol/L (23-31); Chloride 105 mmol/L (98-107); Estimated GFR 70; Globulin 3.4 g/dL (2.4-3.5); Glucose 101 mg/dL (80-115); Potassium 4.4 mmol/L (3.5-5.1); Protein, Total 7.1 g/dL (5.8-8.1); Sodium 139 mmol/L (136-145)
[2023-03-22] MEDS ORDERED: Metoclopramide HCl 10 MG (2 mL) VIAL ONE (03:54)
[2023-03-22] MEDS ORDERED: diphenhydrAMINE 50 MG/ML VIAL ONE (03:54)
[2023-03-22] MEDS ORDERED: Acetaminophen 500 MG TAB ONE (04:31)
== END 2023-03-22 07:16 | disposition home or self-care (01) ==
LOC: ERS 02:15
DX: R51.9 Headache, unspecified (principal); R05.9 Cough, unspecified; M25.561 Pain in right knee; I10 Essential (primary) hypertension; F17.210 Nicotine dependence, cigarettes, uncomplicated; Z55.6 Problems related to health literacy; Z86.73 Personal history of transient ischemic attack (TIA), and cerebral infarction without residual deficits; Z79.82 Long term (current) use of aspirin; Z79.899 Other long term (current) drug therapy
CPT/HCPCS: 36415; 70450; 71045; 80053; 84484; 85025; 93005; 96365; 96375; J1200; J2765

== ENCOUNTER 2023-04-26 03:57 | Emergency (ER) | payer MEDICARE, MEDICAID ==
[2023-04-26] MEDS ORDERED: HYDROcodone/Acetaminophen 10/325 mg Tablet ONE (04:42)
[2023-04-26] MEDS ORDERED: Dexamethasone 4 mg/ml Vial ONE (04:42)
[2023-04-26 06:07] LABS: Influenza A by NAA Not Detected (NotDetected); Influenza B by NAA Not Detected (NotDetected); SARS-CoV-2 NAA Rapid Test Not Detected (NotDetected)
[2023-04-26] MEDS ORDERED: Azithromycin 250 MG TAB ONE (06:35)
== END 2023-04-26 06:38 | disposition home or self-care (01) ==
LOC: ERS 03:57
DX: J18.9 Pneumonia, unspecified organism (principal); I10 Essential (primary) hypertension; F17.210 Nicotine dependence, cigarettes, uncomplicated
CPT/HCPCS: 0240U; 71045; 87081; 87430; J1100

== ENCOUNTER 2024-04-07 11:46 | Outpatient (CLI) | payer MEDICARE, MEDICAID | END 2024-04-07 11:47 | disposition home or self-care (01) | LOC: BICMAMMO 11:46 | PROVIDERS: ATTEND Family Medicine | DX: Z12.31 Encounter for screening mammogram for malignant neoplasm of breast (principal) | CPT/HCPCS: 77063; 77067 ==

== ENCOUNTER 2024-10-08 04:48 | Inpatient (IN) | payer MEDICARE, MEDICAID ==
[2024-10-08 06:05] LABS: #Basophils 0.04 10x3/uL (0.0-0.2); #Eosinophils 0.11 10x3/uL (0.0-0.7); #Monocytes 0.53 10x3/uL (0.11-0.59); #Neutrophils 3.86 10x3/uL (1.40-6.50); %Basophils 0.5 % (0.0-1.0); %Eosinophils 1.4 % (0.0-10.0); %Lymphocytes 44.0 % (21.0-51.0); %Monocytes 6.5 % (0.0-10.0); %Neutrophils 47.4 % (42.0-75.0); Hematocrit 39.0 % (36.0-47.0); Hemoglobin 12.8 g/dL (12.0-16.0); Mean Corpuscular Hemoglobin 30.4 pg (27.0-31.0); Mean Corpuscular Volume 92.6 fL (78.0-98.0); Platelet Count 318 10x3/uL (130-400); Red Blood Cell (RBC) Count 4.21 mill/uL (4.20-5.40); White Blood Cell (WBC) Count 8.14 10x3/uL (4.8-10.8)
[2024-10-08 06:25] LABS: ALT (SGPT) 21 U/L (Less than 34); AST (SGOT) 41 U/L (11-34); Albumin 3.7 g/dL (3.1-4.5); Alkaline Phosphatase 110 U/L (40-110); Anion Gap 15 mmol/L (10-20); BUN (Urea Nitrogen) 17 mg/dL (9.8-20.1); Bilirubin, Total 0.3 mg/dL (0.3-1.2); Calc. Creatinine Clearance 0 mL/min (70-130); Calcium 9.5 mg/dL (7.8-10.44); Carbon Dioxide 26 mmol/L (23-31); Chloride 104 mmol/L (98-107); Globulin 3.9 g/dL (2.4-3.5); Glucose 101 mg/dL (80-115); Potassium 4.7 mmol/L (3.5-5.1); Sodium 140 mmol/L (136-145)
[2024-10-08] MEDS ORDERED: Melatonin 3 MG TAB PO PRN (09:51)
[2024-10-08] MEDS ORDERED: Ondansetron PF 4 MG/2 ML Vial IVP PRN (09:51)
[2024-10-08] MEDS ORDERED: Senokot S 8.6-50 MG TAB PO PRN (09:51)
[2024-10-08] MEDS ORDERED: Bisacodyl 10 MG SUPP PR PRN (09:51)
[2024-10-08] MEDS ORDERED: Calcium Carbonate 500 MG ChewTAB PO PRN (09:51)
[2024-10-08] MEDS ORDERED: Acetaminophen 325 MG TAB PO PRN (09:51)
[2024-10-08] MEDS ORDERED: Mag-Al 1200 mg/1200 mg/30 ML UDCUP ONE (11:28)
[2024-10-08] MEDS ORDERED: Lidocaine Viscous Sol 2% 15 ml UD Cup ONE (11:28)
[2024-10-08] MEDS ORDERED: Pantoprazole 40 MG DR.TAB ONE (11:29)
[2024-10-08] MEDS ORDERED: Aspirin 325 MG TAB ONE (11:29)
[2024-10-08] MEDS ORDERED: Enoxaparin 40 MG (0.4 mL) SYRINGE ONE (11:29)
[2024-10-08] MEDS: Enoxaparin 40 MG (0.4 mL) SYRINGE SC SCH (11:39)
[2024-10-08] MEDS: Aspirin 325 MG TAB PO SCH (11:39)
[2024-10-08] MEDS: Pantoprazole 40 MG DR.TAB PO SCH (11:40)
[2024-10-08] MEDS: Lidocaine 2% Viscous Solution 10 ML, Aluminum & Magnesium Hydroxide 30 ML SSW SCH (11:42)
[2024-10-08] MEDS ORDERED: Nitroglycerin 0.4 MG TAB 1 EACH ONE (14:24)
[2024-10-08] MEDS: Nitroglycerin 0.4 MG TAB (25 Tab Bottle) SL PRN (14:25)
[2024-10-09 06:43] LABS: #Basophils 0.03 10x3/uL (0.0-0.2); #Eosinophils 0.14 10x3/uL (0.0-0.7); #Monocytes 0.46 10x3/uL (0.11-0.59); #Neutrophils 2.37 10x3/uL (1.40-6.50); %Basophils 0.5 % (0.0-1.0); %Eosinophils 2.5 % (0.0-10.0); %Lymphocytes 46.7 % (21.0-51.0); %Monocytes 8.1 % (0.0-10.0); %Neutrophils 42.0 % (42.0-75.0); Hematocrit 41.7 % (36.0-47.0); Hemoglobin 13.3 g/dL (12.0-16.0); Mean Corpuscular Hemoglobin 30.1 pg (27.0-31.0); Mean Corpuscular Volume 94.3 fL (78.0-98.0); Platelet Count 293 10x3/uL (130-400); Red Blood Cell (RBC) Count 4.42 mill/uL (4.20-5.40); White Blood Cell (WBC) Count 5.65 10x3/uL (4.8-10.8)
[2024-10-09 07:02] LABS: Anion Gap 14 mmol/L (10-20); BUN (Urea Nitrogen) 16 mg/dL (9.8-20.1); Calc. Creatinine Clearance 71 mL/min (70-130); Calcium 8.7 mg/dL (7.8-10.44); Carbon Dioxide 22 mmol/L (23-31); Chloride 106 mmol/L (98-107); Glucose 81 mg/dL (80-115); Potassium 4.5 mmol/L (3.5-5.1); Sodium 137 mmol/L (136-145)
[2024-10-09] MEDS: Famotidine 20 MG TAB PO SCH (09:48)
[2024-10-09] MEDS: Aspirin Chewable 81 MG TAB PO SCH (09:48)
[2024-10-09] MEDS: Enoxaparin 40 MG (0.4 mL) SYRINGE SC SCH (09:48)
[2024-10-10 10:54] VITALS: BP 126/91; TEMP 97.7
== END 2024-10-10 12:59 | disposition home or self-care (01) | DRG 313 ==
LOC: ERS 04:48 → ERHOLD 08:38 → OBS 16:50 → OBSVTOIN 10-09 15:36
PROVIDERS: ADMIT Family Medicine; ATTEND Hospitalist
DX: R07.9 Chest pain, unspecified (principal); I69.952 Hemiplegia and hemiparesis following unspecified cerebrovascular disease affecting left dominant side; G40.909 Epilepsy, unspecified, not intractable, without status epilepticus; F31.9 Bipolar disorder, unspecified; I25.10 Atherosclerotic heart disease of native coronary artery without angina pectoris; E78.5 Hyperlipidemia, unspecified; I10 Essential (primary) hypertension; K21.9 Gastro-esophageal reflux disease without esophagitis; F17.210 Nicotine dependence, cigarettes, uncomplicated; I48.0 Paroxysmal atrial fibrillation; Z88.8 Allergy status to other drugs, medicaments and biological substances; Z91.51 Personal history of suicidal behavior
CPT/HCPCS: 36415; 71045; 78452; 80048; 80053; 83880; 84484; 85025; 85379; 87428; 93005; 93017; 93306; 96372; A9502; G0378; J1650; J2785